=== PATIENT | female | born 1940 | race Caucasian/White ===

== ENCOUNTER → 2018-12-15 | Outpatient (CLI) | payer MEDICARE ==
[~2018-12-15] MED LIST: CIPR500 PO; DICL75ER PO; DIPATR PO; LOPE2C PO; OXYACE5T PO; PROM25 PO; TRAM50 PO; TRAZ100 PO; VENL150ER PO
== END | disposition home or self-care (01) ==
LOC: PLD 08:02 → LAB SHORT 08:02
DX: D48.5 Neoplasm of uncertain behavior of skin (principal)
CPT/HCPCS: 88304

== ENCOUNTER → 2020-04-30 | Outpatient (CLI) | payer MEDICARE | END | disposition home or self-care (01) | LOC: PLD 11:24 → LAB SHORT 11:24 | DX: C44.41 Basal cell carcinoma of skin of scalp and neck (principal) | CPT/HCPCS: 88305 ==

== ENCOUNTER 2020-09-06 15:59 | Emergency (ER) | payer MEDICARE ==
[~2020-09-06] VITALS: Ht 165.1 cm; Wt 85.3 kg
[2020-09-06 16:38] LABS: BASOPHILS ABSOLUTE AUTO 0.02 K/mm3 (0.00-0.23); BASOPHILS PERCENT AUTO 0 % (0-2); EOSINOPHILS ABSOLUTE AUTO 0.07 K/mm3 (0.00-0.68); EOSINOPHILS PERCENT AUTO 1 % (0-6); Hematocrit 29.6 % (33.0-51.0); IMMATURE GRAN ABSOLUTE AUTO 0.04 K/mm3 (0.00-0.10); IMMATURE GRAN PERCENT AUTO 1 % (0-1); LYMPHOCYTES ABSOLUTE AUTO 1.53 K/mm3 (0.84-5.20); LYMPHOCYTES PERCENT AUTO 21 % (21-46); MONOCYTES ABSOLUTE AUTO 0.52 K/mm3 (0.16-1.47); MONOCYTES PERCENT AUTO 7 % (4-13); Mean Corpuscular HGB 27.4 pg (26.0-34.0); Mean Corpuscular HGB Conc 30.4 g/dL (31.5-36.5); Mean Corpuscular Volume 90 fL (80-100); Mean Platelet Volume 8.7 fL (9.1-12.4); NEUTROPHILS ABSOLUTE AUTO 5.28 K/mm3 (1.96-9.15); NEUTROPHILS PERCENT AUTO 71 % (41-73); Platelet Count 357 K/mm3 (150-400); RDW Coefficient Variation 19.8 % (11.7-14.2); RDW Standard Deviation 62.6 fL (35.1-46.3); Red Blood Cell Count 3.28 M/mm3 (3.80-5.20); White Blood Cell Count 7.46 K/mm3 (4.00-11.30)
[2020-09-06 17:06] LABS: Alanine Aminotransfer (ALT/SGP 20 U/L (12-78); Albumin, Blood 3.6 g/dL (3.4-5.0); Albumin/Globulin Ratio 0.9 (0.8-1.8); Alk Phos 68 U/L (50-136); Anion Gap 6 mmol/L (6-16); Aspartate Aminotrans (AST/SGOT 12 U/L (12-37); Bilirubin, Total 0.3 mg/dL (0.1-1.0); Blood Urea Nitrogen 9 mg/dL (8-24); Bun/Creatinine Ratio 13.7 (12.0-20.0); CO2, Blood 24 mmol/L (21-32); Calcium, Blood 8.5 mg/dL (8.5-10.1); Chloride, Blood 108 mmol/L (98-108); Creatinine, Blood 0.66 mg/dL (0.40-1.00); Globulin, Blood 4.2 g/dL (2.2-4.0); Glomerular Filtration Rate >60 (60-); Glucose, Blood 112 mg/dL (70-99); Potassium, Blood 3.8 mmol/L (3.5-5.5); Sodium, Blood 138 mmol/L (136-145); Total Protein, Blood 7.8 g/dL (6.4-8.2); Troponin I <0.015 ng/mL (0.000-0.040)
[2021-01-16] MEDS ORDERED: LOSA50 PO (09:17)
== END 2020-09-06 18:40 | disposition home or self-care (01) ==
LOC: ER 15:59
PROVIDERS: Physician Assistant
DX: R07.9 Chest pain, unspecified (principal); Z88.0 Allergy status to penicillin; Z79.899 Other long term (current) drug therapy
CPT/HCPCS: 36415; 71046; 80053; 84484; 85025; 93005; 93010; 96374; 99285-25; J1885

== ENCOUNTER → 2020-11-12 | Outpatient (CLI) | payer MEDICARE ==
[~2020-11-12] MED LIST changes: +LOSA50 PO; +LOSARTAN POTAS100 M1 PO
== END | disposition home or self-care (01) ==
LOC: LAB SHORT 11:43 → LAB 11:43
DX: C44.719 Basal cell carcinoma of skin of left lower limb, including hip (principal)
CPT/HCPCS: 88305

== ENCOUNTER 2021-01-03 00:15 | Day surgery (SDC) | payer MEDICARE ==
[~2021-01-03 00:15] MED LIST changes: -LOSA50 PO; -LOSARTAN POTAS100 M1 PO
[2021-01-03] MEDS ORDERED: LOSARTAN POTAS100 M1 PO (09:23)
--- NOTE | 2021-01-03 11:24 | NUR ---
PT INITIALLY COMPLAINS OF DIZZINESS POST INFUSION WITH TRANSFER TO WHEELCHAIR. BY THE TIME PT WAS WHEELED TO PRIVATE CAR PT STATED DIZZINESS WAS GETTING BETTER. DISCUSSED SIGNS AND SYMPTOMS OF TRANSFUSION REACTIONS AND WHEN TO CALL 911 OR GO TO THE ER. PT VERBALIZED UNDERSTANDING.
[2021-01-16] MEDS ORDERED: LOSA50 PO (09:17)
== END 2021-01-03 11:24 | disposition home or self-care (01) ==
LOC: ATC 00:15 → EDSTATUS 09:00 → ATC 11:24
DX: D50.9 Iron deficiency anemia, unspecified (principal); I10 Essential (primary) hypertension; Z88.0 Allergy status to penicillin
CPT/HCPCS: 36430; 86850; 86900; 86901; 86920; J7050; P9016

== ENCOUNTER → 2021-01-16 | Outpatient (CLI) | payer MEDICARE ==
[~2021-01-16] MED LIST changes: +LOSA50 PO; +LOSARTAN POTAS100 M1 PO
[2021-01-17 10:58] LABS: Adenovirus F 40/41 Not Detected (NOT DETECT); Astrovirus Not Detected (NOT DETECT); Campylobacter Sp Not Detected (NOT DETECT); Cryptosporidium Not Detected (NOT DETECT); Cyclospora Cayetanensis Not Detected (NOT DETECT); E. Coli O157 Not Detected (NOT DETECT); Entamoeba Histolytica Not Detected (NOT DETECT); Enteroaggregative E. coli-EAEC Not Detected (NOT DETECT); Enteropathogenic E. coli-EPEC Not Detected (NOT DETECT); Enterotoxigenic E. coli-ETEC Not Detected (NOT DETECT); Giardia Lamblia Not Detected (NOT DETECT); Norovirus GI/GII Not Detected (NOT DETECT); Plesiomonas Shigelloides Not Detected (NOT DETECT); Rotavirus A Not Detected (NOT DETECT); Salmonella Sp Not Detected (NOT DETECT); Sapovirus Not Detected (NOT DETECT); Shiga Toxin-prod E. coli-STEC Not Detected (NOT DETECT); Shigella/Enteroin E. coli-EIEC Not Detected (NOT DETECT); Vibrio Cholerae Not Detected (NOT DETECT); Vibrio Sp Not Detected (NOT DETECT); Yersinia Enterocolitica Not Detected (NOT DETECT)
== END | disposition home or self-care (01) ==
LOC: LAB SHORT 14:38 → LAB 14:38
PROVIDERS: Student in an Organized Health Care Education/Training Program
DX: R19.7 Diarrhea, unspecified (principal)
CPT/HCPCS: 0097U

== ENCOUNTER → 2022-08-02 | Outpatient (CLI) | payer MEDICARE ==
[2022-08-02 10:46] LABS: BASOPHILS ABSOLUTE AUTO 0.05 K/mm3 (0.00-0.23); BASOPHILS PERCENT AUTO 1 % (0-2); EOSINOPHILS ABSOLUTE AUTO 0.03 K/mm3 (0.00-0.68); EOSINOPHILS PERCENT AUTO 1 % (0-6); Hematocrit 26.3 % (33.0-51.0); Hemoglobin 7.9 g/dL (11.5-16.0); IMMATURE GRAN ABSOLUTE AUTO 0.08 K/mm3 (0.00-0.10); IMMATURE GRAN PERCENT AUTO 1 % (0-1); LYMPHOCYTES ABSOLUTE AUTO 1.38 K/mm3 (0.84-5.20); LYMPHOCYTES PERCENT AUTO 23 % (21-46); MONOCYTES ABSOLUTE AUTO 0.39 K/mm3 (0.16-1.47); MONOCYTES PERCENT AUTO 7 % (4-13); Mean Corpuscular Volume 77 fL (80-100); Mean Platelet Volume 8.6 fL (9.1-12.4); NEUTROPHILS ABSOLUTE AUTO 4.03 K/mm3 (1.96-9.15); NEUTROPHILS PERCENT AUTO 68 % (41-73); NRBC ABSOLUTE 0.02 K/mm3 (0.00-0.02); NRBC Auto 0.3 /100 WBC (0.0-0.2); Platelet Count 400 K/mm3 (150-400); RDW Coefficient Variation 16.1 % (11.7-14.2); RDW Standard Deviation 43.8 fL (35.1-46.3); Red Blood Cell Count 3.44 M/mm3 (3.80-5.20); White Blood Cell Count 5.96 K/mm3 (4.00-11.30)
[2022-08-02 11:03] LABS: Albumin, Blood 3.7 g/dL (3.4-5.0); Albumin/Globulin Ratio 0.9 (0.8-1.8); Bilirubin, Total 0.2 mg/dL (0.1-1.0); Bun/Creatinine Ratio 12.5 (12.0-20.0); Calcium, Blood 8.8 mg/dL (8.5-10.1); Creatinine, Blood 0.8 mg/dL (0.40-1.00); Globulin, Blood 4.3 g/dL (2.2-4.0); Potassium, Blood 3.6 mmol/L (3.5-5.5)
== END | disposition home or self-care (01) ==
LOC: LAB 10:41 → LAB SHORT 10:41
PROVIDERS: Physician Assistant
DX: T80.92XA Unspecified transfusion reaction, initial encounter (principal)
CPT/HCPCS: 80053; 83605; 85025

== ENCOUNTER → 2022-08-03 | Outpatient (CLI) | payer MEDICARE ==
[2022-08-03 09:51] LABS: BASOPHILS ABSOLUTE AUTO 0.05 K/mm3 (0.00-0.23); BASOPHILS PERCENT AUTO 1 % (0-2); EOSINOPHILS ABSOLUTE AUTO 0.07 K/mm3 (0.00-0.68); EOSINOPHILS PERCENT AUTO 1 % (0-6); Hematocrit 27.2 % (33.0-51.0); Hemoglobin 7.9 g/dL (11.5-16.0); IMMATURE GRAN ABSOLUTE AUTO 0.09 K/mm3 (0.00-0.10); IMMATURE GRAN PERCENT AUTO 2 % (0-1); LYMPHOCYTES ABSOLUTE AUTO 1.03 K/mm3 (0.84-5.20); LYMPHOCYTES PERCENT AUTO 17 % (21-46); MONOCYTES ABSOLUTE AUTO 0.46 K/mm3 (0.16-1.47); MONOCYTES PERCENT AUTO 8 % (4-13); Mean Corpuscular HGB 23.1 pg (26.0-34.0); Mean Corpuscular Volume 80 fL (80-100); Mean Platelet Volume 8.6 fL (9.1-12.4); NEUTROPHILS ABSOLUTE AUTO 4.43 K/mm3 (1.96-9.15); NEUTROPHILS PERCENT AUTO 72 % (41-73); NRBC ABSOLUTE 0.03 K/mm3 (0.00-0.02); NRBC Auto 0.5 /100 WBC (0.0-0.2); Platelet Count 375 K/mm3 (150-400); RDW Coefficient Variation 16.5 % (11.7-14.2); RDW Standard Deviation 45.5 fL (35.1-46.3); Red Blood Cell Count 3.42 M/mm3 (3.80-5.20); White Blood Cell Count 6.13 K/mm3 (4.00-11.30)
== END | disposition home or self-care (01) ==
LOC: LAB SHORT 09:48 → LAB 09:48
PROVIDERS: Physician Assistant
DX: D64.9 Anemia, unspecified (principal)
CPT/HCPCS: 85025

== ENCOUNTER 2022-09-11 12:44 | Emergency (ER) | payer MEDICARE ==
[~2022-09-11] VITALS: Ht 167.6 cm; Wt 81.7 kg
[2022-09-11 13:46] LABS: BASOPHILS ABSOLUTE AUTO 0.04 K/mm3 (0.00-0.23); BASOPHILS PERCENT AUTO 1 % (0-2); EOSINOPHILS ABSOLUTE AUTO 0.01 K/mm3 (0.00-0.68); EOSINOPHILS PERCENT AUTO 0 % (0-6); Hematocrit 21.2 % (33.0-51.0); Hemoglobin 6.3 g/dL (11.5-16.0); IMMATURE GRAN ABSOLUTE AUTO 0.04 K/mm3 (0.00-0.10); IMMATURE GRAN PERCENT AUTO 1 % (0-1); LYMPHOCYTES ABSOLUTE AUTO 1.37 K/mm3 (0.84-5.20); LYMPHOCYTES PERCENT AUTO 20 % (21-46); MONOCYTES ABSOLUTE AUTO 0.41 K/mm3 (0.16-1.47); MONOCYTES PERCENT AUTO 6 % (4-13); Mean Corpuscular HGB 23.3 pg (26.0-34.0); Mean Corpuscular HGB Conc 29.7 g/dL (31.5-36.5); Mean Corpuscular Volume 79 fL (80-100); Mean Platelet Volume 9.4 fL (9.1-12.4); NEUTROPHILS ABSOLUTE AUTO 4.98 K/mm3 (1.96-9.15); NEUTROPHILS PERCENT AUTO 73 % (41-73); Platelet Count 448 K/mm3 (150-400); RDW Coefficient Variation 19.7 % (11.7-14.2); RDW Standard Deviation 55.9 fL (35.1-46.3); White Blood Cell Count 6.85 K/mm3 (4.00-11.30)
[2022-09-11 13:58] LABS: Albumin, Blood 3.7 g/dL (3.4-5.0); Albumin/Globulin Ratio 0.9 (0.8-1.8); Bilirubin, Total 0.3 mg/dL (0.1-1.0); Calcium, Blood 9.1 mg/dL (8.5-10.1); Creatinine, Blood 0.63 mg/dL (0.40-1.00); Potassium, Blood 3.9 mmol/L (3.5-5.5); Total Protein, Blood 7.7 g/dL (6.4-8.2)
[2022-09-11] MEDS ORDERED: PEPCID40 MG PO (15:54)
== END 2022-09-11 17:17 | disposition home or self-care (01) ==
LOC: ER 12:44
PROVIDERS: Physician Assistant
DX: D62 Acute posthemorrhagic anemia (principal); Z88.0 Allergy status to penicillin; Z88.8 Allergy status to other drugs, medicaments and biological substances; Z79.899 Other long term (current) drug therapy
CPT/HCPCS: 36415; 36430; 80053; 85025; 86850; 86900; 86901; 86923; 93005; 93010; 96374; 99284-25; C9113; J7030; P9016

== ENCOUNTER 2022-10-12 07:02 | Emergency (ER) | payer MEDICARE ==
[~2022-10-12] VITALS: Ht 167.6 cm; Wt 81.7 kg
[~2022-10-12 07:02] MED LIST changes: +PEPCID40 MG PO
[2022-10-12] MEDS ORDERED: FERROUS SULFAT325 M3 PO (07:36)
[2022-10-12] MEDS ORDERED: Flector1 EACH (07:36)
[2022-10-12] MEDS ORDERED: BRIMONIDINE 0.110 ML (07:37)
[2022-10-12] MEDS ORDERED: TRAZ100 PO (07:38)
[2022-10-12] MEDS ORDERED: OYSTER SHELL 51 EACH PO (07:38)
[2022-10-12] MEDS ORDERED: THERA-D2000 UNIT PO (07:38)
[2022-10-12] MEDS ORDERED: HYDR1TAB94 PO (08:25)
[2022-10-12] MEDS ORDERED: PRED20 PO (08:25)
== END 2022-10-12 09:39 | disposition home or self-care (01) ==
LOC: ER 07:02
DX: M25.551 Pain in right hip (principal); M35.3 Polymyalgia rheumatica; Z88.0 Allergy status to penicillin; Z88.1 Allergy status to other antibiotic agents; Z88.8 Allergy status to other drugs, medicaments and biological substances; Z79.899 Other long term (current) drug therapy; Z79.52 Long term (current) use of systemic steroids
CPT/HCPCS: 96372; 99283-25; A9270; J3301

== ENCOUNTER 2023-05-11 18:45 | Emergency (ER) | payer MEDICARE ==
[~2023-05-11] VITALS: Ht 167.6 cm; Wt 81.7 kg
[~2023-05-11 18:45] MED LIST changes: +BRIMONIDINE 0.110 ML; +FERROUS SULFAT325 M3 PO; +Flector1 EACH; +HYDR1TAB94 PO; +OYSTER SHELL 51 EACH PO; +PRED20 PO; +THERA-D2000 UNIT PO
[2023-05-11 19:38] LABS: BASOPHILS ABSOLUTE AUTO 0.05 K/mm3 (0.00-0.23); BASOPHILS PERCENT AUTO 1 % (0-2); EOSINOPHILS ABSOLUTE AUTO 0.07 K/mm3 (0.00-0.68); EOSINOPHILS PERCENT AUTO 1 % (0-6); Hematocrit 38.5 % (33.0-51.0); Hemoglobin 13.1 g/dL (11.5-16.0); IMMATURE GRAN PERCENT AUTO 1 % (0-1); LYMPHOCYTES ABSOLUTE AUTO 1.08 K/mm3 (0.84-5.20); LYMPHOCYTES PERCENT AUTO 13 % (21-46); MONOCYTES ABSOLUTE AUTO 0.36 K/mm3 (0.16-1.47); MONOCYTES PERCENT AUTO 4 % (4-13); Mean Corpuscular HGB 31.2 pg (26.0-34.0); Mean Corpuscular Volume 92 fL (80-100); Mean Platelet Volume 9.2 fL (9.1-12.4); NEUTROPHILS ABSOLUTE AUTO 6.51 K/mm3 (1.96-9.15); NEUTROPHILS PERCENT AUTO 80 % (41-73); Platelet Count 251 K/mm3 (150-400); RDW Coefficient Variation 12.8 % (11.7-14.2); White Blood Cell Count 8.17 K/mm3 (4.00-11.30)
[2023-05-11 19:50] LABS: Albumin, Blood 3.4 g/dL (3.4-5.0); Albumin/Globulin Ratio 0.8 (0.8-1.8); Bilirubin, Total 0.3 mg/dL (0.1-1.0); Bun/Creatinine Ratio 19.8 (12.0-20.0); Calcium, Blood 8.2 mg/dL (8.5-10.1); Creatinine, Blood 0.61 mg/dL (0.40-1.00); Globulin, Blood 4.1 g/dL (2.2-4.0); Potassium, Blood 4.2 mmol/L (3.5-5.5); Total Protein, Blood 7.5 g/dL (6.4-8.2)
[2023-05-11 21:31] LABS: Source, Urine Clean Catch
[2023-05-11 21:34] LABS: Appearance, Urine Clear (Clear); Bilirubin, Urine Neg (Neg); Blood, Urine 2+ (Neg); Color, Urine Yellow (P-Yellow); Glucose Qualitative, Urine Neg (Neg); Ketones, Urine Neg (Neg); Leukocyte Esterase, Urine Neg (Neg); Nitrite, Urine Neg (Neg); Protein, Urine Neg (Neg); Urobilinogen, Urine NORM (Normal)
[2023-05-11 21:56] LABS: Bacteria Few /hpf; Red Blood Cells, Urine 0-2 /hpf (0-2); Squamous Epithelial Cells Few /hpf (Few); White Blood Cells, Urine 0-2 /hpf (0-5)
[2023-05-11 23:33] LABS: Magnesium, Blood 2.2 mg/dL (1.6-2.4)
[2023-05-11 23:35] LABS: Thyroid Stimulating Hormone 6.98 uIU/mL (0.360-4.800)
[2023-05-12] MEDS ORDERED: LIDO700A20 TOP (04:58)
[2023-05-12 05:00] VITALS: BP 131/114
== END 2023-05-12 07:20 | disposition home or self-care (01) ==
LOC: ER 18:45
PROVIDERS: Emergency Medicine
DX: S22.41XA Multiple fractures of ribs, right side, initial encounter for closed fracture (principal); F10.129 Alcohol abuse with intoxication, unspecified; Y90.6 Blood alcohol level of 120-199 mg/100 ml; Z79.899 Other long term (current) drug therapy; W18.39XA Other fall on same level, initial encounter
CPT/HCPCS: 70450; 71046; 71275; 72125; 80053; 81001; 83605; 83690; 83735; 84100; 84443; 84484; 85025; 85379; 93005; 93010; J3010; Q9967

== ENCOUNTER 2023-05-21 17:40 | Inpatient (IN) | payer MEDICARE ==
[~2023-05-21] VITALS: Ht 167.6 cm; Wt 85.3 kg
[~2023-05-21 17:40] MED LIST changes: +LIDO700A20 TOP
[2023-05-21 18:11] LABS: BASOPHILS ABSOLUTE AUTO 0.04 K/mm3 (0.00-0.23); BASOPHILS PERCENT AUTO 0 % (0-2); EOSINOPHILS ABSOLUTE AUTO 0.09 K/mm3 (0.00-0.68); EOSINOPHILS PERCENT AUTO 1 % (0-6); Hematocrit 31.1 % (33.0-51.0); Hemoglobin 10.1 g/dL (11.5-16.0); IMMATURE GRAN ABSOLUTE AUTO 0.11 K/mm3 (0.00-0.10); IMMATURE GRAN PERCENT AUTO 1 % (0-1); LYMPHOCYTES ABSOLUTE AUTO 1.25 K/mm3 (0.84-5.20); LYMPHOCYTES PERCENT AUTO 11 % (21-46); MONOCYTES ABSOLUTE AUTO 0.93 K/mm3 (0.16-1.47); MONOCYTES PERCENT AUTO 8 % (4-13); Mean Corpuscular HGB 31.2 pg (26.0-34.0); Mean Corpuscular HGB Conc 32.5 g/dL (31.5-36.5); Mean Corpuscular Volume 96 fL (80-100); Mean Platelet Volume 8.9 fL (9.1-12.4); NEUTROPHILS ABSOLUTE AUTO 9.23 K/mm3 (1.96-9.15); NEUTROPHILS PERCENT AUTO 79 % (41-73); NRBC ABSOLUTE 0.03 K/mm3 (0.00-0.02); NRBC Auto 0.3 /100 WBC (0.0-0.2); Platelet Count 550 K/mm3 (150-400); RDW Coefficient Variation 14.2 % (11.7-14.2); RDW Standard Deviation 49.1 fL (35.1-46.3); Red Blood Cell Count 3.24 M/mm3 (3.80-5.20); White Blood Cell Count 11.65 K/mm3 (4.00-11.30)
[2023-05-21 18:38] LABS: Albumin, Blood 3.2 g/dL (3.4-5.0); Albumin/Globulin Ratio 0.7 (0.8-1.8); Bilirubin, Total 0.6 mg/dL (0.1-1.0); Bun/Creatinine Ratio 31.7 (12.0-20.0); Calcium, Blood 8.8 mg/dL (8.5-10.1); Creatinine, Blood 0.66 mg/dL (0.40-1.00); Globulin, Blood 4.5 g/dL (2.2-4.0); Potassium, Blood 4.1 mmol/L (3.5-5.5); Total Protein, Blood 7.7 g/dL (6.4-8.2)
[2023-05-21 21:51] VITALS: BP 130/99
--- NOTE | 2023-05-21 22:45 | NUR ---
ARRIVAL TO UNIT PT ARRIVED VIA GURNEY AND TRANSFERED OVER TO BED WITH SLDING SHEET. PT WAS PUT ON 02 AFTER ARRIVAL DUE TO C/O SOB. PT SATTING ABOVE 95% ON 2L NC. PT LUNGS SOUND ARE DIMINISHED ON THE R SIDE. PT RR LABORED, BUT EVEN. PT DENIES ANY PAIN AT THIS TIME. STATES IT HURTS MORE WHEN SHE IS MOVED. DR NOLEN IN TO TALK TO PT ABOUT CODE STATUS. PT WISHES ARE DNR/DNI. SAYS TO CALL SURGEON IF PT O2 REQUIRMENTS, WOB, SOB AND DYSPNEA INCREASE. PT DENIES ANY OTHER NEEDS AT THIS TIME. CALL LIGHT WITHIN REACH.
[2023-05-22] VITALS (31 sets, daily range): BP systolic 95–152; BP diastolic 57–100
[2023-05-22 04:22] LABS: BASOPHILS ABSOLUTE AUTO 0.04 K/mm3 (0.00-0.23); BASOPHILS PERCENT AUTO 0 % (0-2); EOSINOPHILS ABSOLUTE AUTO 0.04 K/mm3 (0.00-0.68); EOSINOPHILS PERCENT AUTO 0 % (0-6); Hematocrit 28.1 % (33.0-51.0); Hemoglobin 9.3 g/dL (11.5-16.0); IMMATURE GRAN PERCENT AUTO 1 % (0-1); LYMPHOCYTES ABSOLUTE AUTO 0.89 K/mm3 (0.84-5.20); LYMPHOCYTES PERCENT AUTO 9 % (21-46); MONOCYTES ABSOLUTE AUTO 0.98 K/mm3 (0.16-1.47); MONOCYTES PERCENT AUTO 10 % (4-13); Mean Corpuscular HGB 31.5 pg (26.0-34.0); Mean Corpuscular HGB Conc 33.1 g/dL (31.5-36.5); Mean Corpuscular Volume 95 fL (80-100); Mean Platelet Volume 8.9 fL (9.1-12.4); NEUTROPHILS ABSOLUTE AUTO 7.83 K/mm3 (1.96-9.15); NEUTROPHILS PERCENT AUTO 79 % (41-73); Platelet Count 454 K/mm3 (150-400); RDW Coefficient Variation 14.4 % (11.7-14.2); Red Blood Cell Count 2.95 M/mm3 (3.80-5.20); White Blood Cell Count 9.88 K/mm3 (4.00-11.30)
--- NOTE | 2023-05-22 04:40 | NUR ---
UPDATE PT C/O SOB. ONLY ABLE TO GET A WORD OR TWOUT WITH EVERY BREATH. PT SATTING AT 94% ON 2L NC. HOSPITALIST NOTIFIED, CHEST X-RAY WAS ORDERED. X-RAY WAS WAS OBTAINED. HOSPITALIST RECOMENDED TO PUT C-PAP OR BI-PAP ON. RT WAS NOTIFIED. RT SUGGESTED AGAINST THAT BECAUSE OF PT DX. HOSPITALIST CALLED BACK WITH RESULTS, NO NEW ORDERS. DR. FOSTER WAS NOTIFIED OF CHANGE IN PT CONDITION. SAID HE WILL BE IN IN THE MORNING. CONT BIOX ON FOR SAFETY. CALL LIGHT WITHIN REACH.
[2023-05-22 04:41] LABS: Albumin, Blood 2.8 g/dL (3.4-5.0); Albumin/Globulin Ratio 0.6 (0.8-1.8); Bilirubin, Total 0.7 mg/dL (0.1-1.0); Bun/Creatinine Ratio 28.7 (12.0-20.0); Calcium, Blood 8.5 mg/dL (8.5-10.1); Creatinine, Blood 0.63 mg/dL (0.40-1.00); Globulin, Blood 4.4 g/dL (2.2-4.0); Magnesium, Blood 2.3 mg/dL (1.6-2.4); Potassium, Blood 3.9 mmol/L (3.5-5.5); Total Protein, Blood 7.2 g/dL (6.4-8.2)
--- NOTE | 2023-05-22 07:30 | NUR ---
THIS NURSE NOTIFIED DR. FOSTER THAT PATIENTS HR, RR, AND NC OXYGEN HAVE BEEN STEADILY INCLINING AND ASKED IF DR. FOSTER WAS GOING TO COME AND SEE HER. DR. FOSTER RESPONDED "SHE IS SCHEDULED FOR THE OR AT 11 THIS MORNING". PATIENT AT THIS TIME WAS REQUIRING 4L NC WITH OXYGEN SATS AT 92%. PATIENT'S RR 26 AND HR AT 113. PATIENT IS LAYING IN BED WITH CALL LIGHT IN REACH AND AT BEDSIDE.
--- NOTE | 2023-05-22 10:41 | NUR ---
PATIENT IS LEAVING FOR THE OR.
--- NOTE | 2023-05-22 11:11 | NUR ---
PT HERE FROM SURGICAL FLOOR FOR MINI THOROCOTOMY AND CHEST TUBE PLACEMENT IN THE RIGHT LUNG. History, Chart, Medications and Allergies reviewed before start of procedure.Pre-Op teaching done. Pt verbalizes understanding. Patient confirms NPO status and agrees with scheduled surgery. PT IS DYSPENIC. NO AUDIBLE LUNG SOUNDS ON RIGHT SIDE. LEFT SIDE CLEAR. PT IN AFIB W/RVR PER EKG. PT HAS H/O OF INCONINTENCE AND PUREWIC WAS JUST REMOVED PRIOR TO TRANSPORT. PT IS WARM CENTRALLY BUT HAS AND FEET VERY COLD. LOWER LEGS MOTTELED PT STATES SHE'S BEEN FEELING HOT FOR DAYS.
--- NOTE | 2023-05-22 11:40 | NUR ---
REPORT FROM KRISTEN SILVA RN. PT SITTING UP IN BED, CURRENTLY IN AFIB PER EKG. PT VISABLY SHORT OF BREATH AND ON O2 VIA NASAL CANNULA 4LPM. PT USING ACCESSORY MUSCLES TO BREATH. 02 SATURATION STAYING AT 100%. PT GIVEN MOUTH LOSENGE AND ENCOURAGED TO BREATH THROUGH NOSE, DISTRACTION BY VISITATION AT BEDSIDE TO REDUCE PT STRESS.
--- NOTE | 2023-05-22 13:52 | NUR ---
THIS NURSE GAVE REPORT TO VIRGEN ARAGON IN ICU WITH ALL OF HER PERSONAL BELONGINGS BROUGHT OVER. WAS NOTIFIED OF NEW PATIENT STATUS.
--- NOTE | 2023-05-22 13:57 | NUR ---
1330-CALLED DR FOSTER TO BEDSIDE IN PACU TO EVALUATE PATIENT. POST-OP CXR AVAILABLE FOR DR FOSTER TO REVIEW. PATIENT EXERTING HERSELF TO BREATH. C/O SOB. ORTHOPNEIC AND TACHYPNIC. NO CREPITUS NOTED. CHEST TUBE TO 20CM. 300 SANGUNIOUS DRAINAGE NOTED TO DRRAINAGE CHAMBER. LUNGS DIMINISHED TO LOWER LOBES BILAT ANT/POST, MORE SO ON RIGHT. UNABLE TO OBTAIN O2 SATURATION WITH PULSE-OX WITH CONFIDENCE. HR 110-150s AFIB, MAINTAINES MAP GREATER THAN 60-65. C/O 7/10 PAIN TO CHEST, BUT NO ORDERS FOR ANALGESIC AT THIS TIME. THIS ALL REPORTED TO DR FOSTER. PLAN FOR TRANSFER TO ICU. 1339-LEFT PACU VIA BED TRANSFER WITH MONITOR INTACT AND 10L O2/NRB. TRANSFER TO ICU 11. REPORT GIVEN TO MARGO MAYFIELD.
--- NOTE | 2023-05-22 14:33 | NUR ---
Assumed care of pt at 1345 on patient arrival from OR. Bedside report received from surgical floor nurse Henrietta and OR staff who delivered patient. Patient has right anterior chest tube with 210 mL sanguinous drainage on arrival. Connected to dry suction -20 cm H20, set up verified with charger Roby. Site is free of crepitus. Patient's chief complaint is pain to surgical site. She states its 10/10, burning. Tachypnic. Wearing 10 LPM NRB. Unreliable pleth on SpO2. Tachycardic, irregular HR. Reports "I feel like I'm going to throw up". Medicated for pain and nausea per PACU orders. After 4 mg zofran and 2 mg morphine, pt reports pain has improved to 1/10. Denies shortness of breath and states she feels she can breathe better with her pain managed. Titrated down to 6 LPM NC. Currently SPO2 is 93%. Tachycardia persists, notified Dr Luque of ICU transfer and vital signs trends. Discussed EBL per verbal report and documentation in chart. Provider orders stat labs. BP stable. Per Henrietta ARAGON, she notified pt's spouse of ICU transfer.
[2023-05-22 14:52] LABS: BASOPHILS ABSOLUTE AUTO 0.05 K/mm3 (0.00-0.23); BASOPHILS PERCENT AUTO 0 % (0-2); EOSINOPHILS PERCENT AUTO 0 % (0-6); Hematocrit 33.3 % (33.0-51.0); Hemoglobin 10.6 g/dL (11.5-16.0); IMMATURE GRAN ABSOLUTE AUTO 0.15 K/mm3 (0.00-0.10); IMMATURE GRAN PERCENT AUTO 1 % (0-1); LYMPHOCYTES ABSOLUTE AUTO 0.52 K/mm3 (0.84-5.20); LYMPHOCYTES PERCENT AUTO 4 % (21-46); MONOCYTES ABSOLUTE AUTO 0.93 K/mm3 (0.16-1.47); MONOCYTES PERCENT AUTO 7 % (4-13); Mean Corpuscular HGB 31.4 pg (26.0-34.0); Mean Corpuscular HGB Conc 31.8 g/dL (31.5-36.5); Mean Corpuscular Volume 99 fL (80-100); Mean Platelet Volume 8.7 fL (9.1-12.4); NEUTROPHILS ABSOLUTE AUTO 12.04 K/mm3 (1.96-9.15); NEUTROPHILS PERCENT AUTO 88 % (41-73); NRBC ABSOLUTE 0.02 K/mm3 (0.00-0.02); NRBC Auto 0.1 /100 WBC (0.0-0.2); Platelet Count 487 K/mm3 (150-400); RDW Coefficient Variation 14.4 % (11.7-14.2); Red Blood Cell Count 3.38 M/mm3 (3.80-5.20); White Blood Cell Count 13.69 K/mm3 (4.00-11.30)
[2023-05-22 15:11] LABS: Albumin, Blood 2.8 g/dL (3.4-5.0); Albumin/Globulin Ratio 0.6 (0.8-1.8); Bilirubin, Total 0.6 mg/dL (0.1-1.0); Bun/Creatinine Ratio 27.6 (12.0-20.0); Calcium, Blood 8.3 mg/dL (8.5-10.1); Creatinine, Blood 0.62 mg/dL (0.40-1.00); Globulin, Blood 4.4 g/dL (2.2-4.0); Magnesium, Blood 2.3 mg/dL (1.6-2.4); Potassium, Blood 3.7 mmol/L (3.5-5.5); Total Protein, Blood 7.2 g/dL (6.4-8.2)
--- NOTE | 2023-05-22 15:15 | NUR ---
Call placed to Dr Luque to discuss that pt's HR has touched into the 160s. Patient denies hx of atrial fibrillation. Provider states that patient has a hx of atrial fibrillation per Natalia notes. Also states that pt typically has controlled rate without medications. Discussed that pt's mucous membranes are very dry. Provider orders IV fluids with plan that hydration will help pt's HR stabilize. Discussed that pt has mottling to bilateral knees and cyanotic fingers/toes with delayed capillary refill. Expressed concern for potential infection considering HR and poor distal extremity circulation. Inquired if lactic acid should be drawn. Provider states that pt's presentation does not appear as sepsis and no changes to plan of care are necessary at this time.
--- NOTE | 2023-05-22 18:26 | NUR ---
SUMMARY Neuro: Pt is A&O x 4. Answers questions, follows commands, verbalizes needs. Pleasant and cooperative with care. Pupils 4 mm, PERRL. Pain: Burning pain to right lateral chest, site of rib fx and chest tube. Effectively treated with IV morphine and PO pain meds. Currently reports pain 3/10 (after repositioning and coughing) and states this is a tolerable level for her. Musc: Moves all extremities with equal strength and range of motion. Able to help with repositioning. ADLs: Repositioned Q2H. Oral care performed with suction swab. Pt educated on importance of oral care for pneumonia prevention; pt verbalizes understanding. Resp: Coarse on DANIELLE and clear/dim in other lobes. Has been titrated down to 3 LPM NC. SpO2 currently 99%. R lateral chest tube has had 260 mL of sanguinous drainage. No leak. Fluctuating with respirations. No creiptus. On awakening this evening, pt has had upper respiratory repiratory secretions, audible when pt is breathing. Coached pt to cough and deep breathe. Additionally coached patient on usage of incentive spirometer and flutter valve. Pt has been using these devices correctly and independently after education provided. Cardiac: Afib per monitor with rate in low 100s. BP stable. Cyanotic fingers and toes unchanged. No edema. GI: Tolerated PO water and pills without difficulty. No BM this shift. : Purewick in place. No new urine output this afternoon. Skin: No skin breakdown. Posterior surface free of pressure injury. Ecchymosis to right lateral chest/flank, appears as old/fading bruising. Very dry mucous membranes. Psychosocial: Family updated by previous RN caring for patient. Pt anxious on arrival but has calmed since pain has been controlled. Receptive to education provided and appreciative of care. Often talks to self in room.
[2023-05-23] VITALS (18 sets, daily range): BP systolic 86–112; BP diastolic 50–74
[2023-05-23 03:39] LABS: BASOPHILS ABSOLUTE AUTO 0.03 K/mm3 (0.00-0.23); BASOPHILS PERCENT AUTO 0 % (0-2); EOSINOPHILS ABSOLUTE AUTO 0.02 K/mm3 (0.00-0.68); EOSINOPHILS PERCENT AUTO 0 % (0-6); Hemoglobin 8.9 g/dL (11.5-16.0); IMMATURE GRAN ABSOLUTE AUTO 0.18 K/mm3 (0.00-0.10); IMMATURE GRAN PERCENT AUTO 2 % (0-1); LYMPHOCYTES ABSOLUTE AUTO 0.89 K/mm3 (0.84-5.20); LYMPHOCYTES PERCENT AUTO 7 % (21-46); MONOCYTES ABSOLUTE AUTO 1.28 K/mm3 (0.16-1.47); MONOCYTES PERCENT AUTO 11 % (4-13); Mean Corpuscular HGB 30.9 pg (26.0-34.0); Mean Corpuscular HGB Conc 31.8 g/dL (31.5-36.5); Mean Corpuscular Volume 97 fL (80-100); Mean Platelet Volume 8.8 fL (9.1-12.4); NEUTROPHILS ABSOLUTE AUTO 9.82 K/mm3 (1.96-9.15); NEUTROPHILS PERCENT AUTO 80 % (41-73); Platelet Count 390 K/mm3 (150-400); RDW Coefficient Variation 14.3 % (11.7-14.2); RDW Standard Deviation 50.8 fL (35.1-46.3); Red Blood Cell Count 2.88 M/mm3 (3.80-5.20); White Blood Cell Count 12.22 K/mm3 (4.00-11.30)
[2023-05-23 04:00] LABS: Calcium, Blood 7.9 mg/dL (8.5-10.1); Creatinine, Blood 0.64 mg/dL (0.40-1.00); Potassium, Blood 3.6 mmol/L (3.5-5.5)
--- NOTE | 2023-05-23 13:06 | NUR ---
REASSESSMENT PT GOT UP TO THE CHAIR THIS AM WITH THE LIFT AND HAS BEEN SITTING IN THE CHAIR SINCE. SHE IS ALERT AND ORIENTED. OXYGEN WEANED OFF THIS AM AND WHILE AWAKE SPO2 IS IN THE MID 90S. WHEN SHE TOOK A NAP HER SPO2 DROPPED TO 86% SO 2L/NC PUT BACK ON HER WHILE SHE SLEPT. RIGHT CHEST TUBE IS SECURE WITH SANGUINOUS DRAINAGE. NO CREPITUS AROUND INSERTION SITE. MEDICATED ONCE THIS AM FOR PAIN ON THE R SIDE. LUNGS ON THE R ARE COARSE, CLEAR ON THE L. CONTINUES IN AFIB, RATE IN THE LOW 100S. PUREWICK IN PLACE FOR VOIDING. PT IS DRINKING FLUIDS AND ATE BREAKFAST. PT'S CAME BY THIS AM AND WAS UPDATED BY NURSING STAFF.
--- NOTE | 2023-05-23 17:46 | NUR ---
SHIFT SUMMARY/TRANSFER PT HAS CONTINUED TO DO WELL THROUGHOUT THE DAY. SANGUINOUS DRAINAGE FROM CHEST TUBE IS TURNING MORE BROWN, CONSISTENT WITH THE APPEARANCE OF OLDER BLOOD. LUNGS ARE STILL COARSE ON THE R SIDE AND ARE STARTING TO SOUND A LITTLE COARSE ON THE L. REMAINS IN AFIB WITH RATE IN THE LOW 100S AT REST, UP TO 130S WITH ACTIVITY OR WHEN MORE PAINFUL. BP STABLE. VOIDING USING THE PUREWICK. PT TRANSFERRING TO RM 226. REPORT GIVEN TO MARGO BONILLA. PT TRANSPORTED VIA WITH LUBE MAN. PT'S , HARJEET, NOTIFIED OF ROOM CHANGE.
--- NOTE | 2023-05-23 18:17 | NUR ---
ARRIVAL TO UNIT PT ARRIVED TO UNIT WITH WATERSEAL INTACT, CONNECTED TO WALL SUCTION AT -20. PT REPORTS BREATHING FEELS MUCH BETTER BUT STILL PAINFUL WITH INSPIRATION. SANGUINOUS DRAINAGE IN CANISTER. PT [id number], SITTING UP IN BED LISTENING TO MUSIC. CALLS APPROPRIATLY. REPORTS PAIN TOLERABLE AT THIS TIME. DENIES FURTHER NEEDS AT THIS TIME.
[2023-05-24 02:02] VITALS: BP 117/59
[2023-05-24 02:03] VITALS: BP 117/59
[2023-05-24 07:20] VITALS: BP 110/62
[2023-05-24 07:21] LABS: BASOPHILS ABSOLUTE AUTO 0.03 K/mm3 (0.00-0.23); BASOPHILS PERCENT AUTO 0 % (0-2); EOSINOPHILS ABSOLUTE AUTO 0.07 K/mm3 (0.00-0.68); EOSINOPHILS PERCENT AUTO 1 % (0-6); Hematocrit 24.9 % (33.0-51.0); IMMATURE GRAN ABSOLUTE AUTO 0.15 K/mm3 (0.00-0.10); IMMATURE GRAN PERCENT AUTO 1 % (0-1); LYMPHOCYTES ABSOLUTE AUTO 0.68 K/mm3 (0.84-5.20); LYMPHOCYTES PERCENT AUTO 6 % (21-46); MONOCYTES ABSOLUTE AUTO 0.91 K/mm3 (0.16-1.47); MONOCYTES PERCENT AUTO 9 % (4-13); Mean Corpuscular HGB 30.4 pg (26.0-34.0); Mean Corpuscular HGB Conc 32.1 g/dL (31.5-36.5); Mean Corpuscular Volume 95 fL (80-100); Mean Platelet Volume 8.7 fL (9.1-12.4); NEUTROPHILS ABSOLUTE AUTO 8.86 K/mm3 (1.96-9.15); NEUTROPHILS PERCENT AUTO 83 % (41-73); Platelet Count 311 K/mm3 (150-400); RDW Coefficient Variation 13.9 % (11.7-14.2); RDW Standard Deviation 47.8 fL (35.1-46.3); Red Blood Cell Count 2.63 M/mm3 (3.80-5.20)
--- NOTE | 2023-05-24 07:29 | NUR ---
SHIFT SUMMARY PT REMAINS A&O X4,VSS, AFIB THROUGH THE NIGHT PER MANAGER COMBINATION, SPO2 >93% ON 3L VIA NC, C.TUBE DRSG C/D/I, 30 ML'S OF SANGUINOUS DRAINAGE NOTED, SWELLING/BRUISING PRESENT, PAIN WNL, RESP SHALLOW, UNLABORED, TOLERATING PO INTAKE, VOIDING WNL, PT IS AWAKE, RESTING IN BED THIS MORNING, CALL LIGHT IN REACH, REPORT GIVEN TO CHAD ARAGON
[2023-05-24 07:41] LABS: Calcium, Blood 7.7 mg/dL (8.5-10.1); Creatinine, Blood 0.63 mg/dL (0.40-1.00); Potassium, Blood 3.4 mmol/L (3.5-5.5)
--- NOTE | 2023-05-24 10:12 | NUR ---
CHEST TUBE PLACED TO WATER SEAL AT THIS TIME. PT DENIES SOB. EDUCATED PATIENT ON CALLING IF SHE HAS AN INCREASE IN PAIN OR SHORTNESS OF BREATH. SHE HAS CALL LIGHT IN REACH AND IS UNDERSTANDING OF EDUCATION.
--- NOTE | 2023-05-24 13:47 | NUR ---
pt c/o of increased confusion upon waking up, lungs sounds clear t/o but absent on right lower lobes. oxygen saturation staying above 92%. pt reports no increase in shortness of breath. md notified. will continue with water seal and repeat x-rays in the morning.
[2023-05-24 14:45] VITALS: BP 103/69
--- NOTE | 2023-05-24 17:19 | NUR ---
PT CONTINUING TO HAVE INCREASED WORK OF BREATHING. SHE REPORTS FEELING HARDER TO BREATH. CHEST TUBE CONTINUED TO TIDAL WHILE ON WATER SEAL. RECONNECTED TO SUCTION AT -[address] FOSTER. NO BUBBLES IN WATER SEAL CHAMBER. PT ABLE TO TAKE DEEP BREATHS WITH TIDLING NOTED. PT HAS BEEN UP IN CHAIR FOR MOST OF SHIFT, SHE HAS BEEN TRANSFERING WITH 1 ASSIST TO BSC. VOIDING WELL. TOLERATING DIET WELL. SLIGHT CONFUSION UPON WAKING DURING SHIFT BUT REORIENTS WELL. CHEST TUBE DRESSING REMAINS CDI. NO CREPITUS FELT ON ASSESSMENT.
--- NOTE | 2023-05-24 18:08 | NUR ---
pt reports feeling much better since being reconnected to suction. she reports no more confusion or "foggy" feeling. sats remain in the upper 90's
[2023-05-24 18:24] VITALS: BP 104/60
[2023-05-25] VITALS (16 sets, daily range): BP systolic 98–121; BP diastolic 55–87
[2023-05-25 04:57] LABS: BASOPHILS ABSOLUTE AUTO 0.03 K/mm3 (0.00-0.23); BASOPHILS PERCENT AUTO 0 % (0-2); EOSINOPHILS ABSOLUTE AUTO 0.13 K/mm3 (0.00-0.68); EOSINOPHILS PERCENT AUTO 2 % (0-6); Hemoglobin 7.4 g/dL (11.5-16.0); IMMATURE GRAN ABSOLUTE AUTO 0.12 K/mm3 (0.00-0.10); IMMATURE GRAN PERCENT AUTO 2 % (0-1); LYMPHOCYTES ABSOLUTE AUTO 0.62 K/mm3 (0.84-5.20); LYMPHOCYTES PERCENT AUTO 8 % (21-46); MONOCYTES ABSOLUTE AUTO 0.72 K/mm3 (0.16-1.47); MONOCYTES PERCENT AUTO 9 % (4-13); Mean Corpuscular HGB 30.5 pg (26.0-34.0); Mean Corpuscular HGB Conc 32.2 g/dL (31.5-36.5); Mean Corpuscular Volume 95 fL (80-100); Mean Platelet Volume 8.9 fL (9.1-12.4); NEUTROPHILS ABSOLUTE AUTO 6.47 K/mm3 (1.96-9.15); NEUTROPHILS PERCENT AUTO 80 % (41-73); Platelet Count 275 K/mm3 (150-400); RDW Coefficient Variation 14.1 % (11.7-14.2); Red Blood Cell Count 2.43 M/mm3 (3.80-5.20); White Blood Cell Count 8.09 K/mm3 (4.00-11.30)
[2023-05-25 05:25] LABS: Albumin/Globulin Ratio 0.5 (0.8-1.8); Bilirubin, Total 0.3 mg/dL (0.1-1.0); Bun/Creatinine Ratio 13.9 (12.0-20.0); Calcium, Blood 7.9 mg/dL (8.5-10.1); Creatinine, Blood 0.58 mg/dL (0.40-1.00); Globulin, Blood 4.1 g/dL (2.2-4.0); Potassium, Blood 3.3 mmol/L (3.5-5.5); Total Protein, Blood 6.1 g/dL (6.4-8.2)
--- NOTE | 2023-05-25 07:58 | NUR ---
SHIFT SUMMARY PT REMAINS A&O X4, VSS, AFIB PER HISTORICAL RECORDS ADMINISTRATOR, SPO2 >94% ON 3L NC, CHEST TUBE TO SUCTION, DRSG C/D/I, SANGUINOUS FLUID NOTED IN CANISTER, PT DENIES SOB, DEEP BREATH & COUGH ENC, PT SCHEDULED FOR 2 VIEW CHEST XRAY THIS AM, HGB 7.4, KCL 3.3, PAIN MANAGED PER EMAR, VOIDING WNL, TOLERATING PO INTAKE, REPORT GIVEN TO HELADIO ARAGON. CALL LIGHT IN REACH
--- NOTE | 2023-05-25 08:50 | NUR ---
INCREASED WOB/SOB PT CALLED TO SAY FEELING SOB. ELEVATED HOB. 02 SATS DROPPED TO HIGH 70S, PT ENCOURAGED TO TAKE DEEP INSPIRATIONS AND INCREASED 02 TO 3L NC. NOW SATS HIGH 90S. PT TACHYPNIC AT 24. NOTIFIED DR FOSTER, CXR CHANGED TO STAT PORTABLE AND DR CALZADA NOTIFIED PER DR FOSTER'S REQUEST. SPOKE TO DR CALZADA, NO NEW ORDERS AT THIS TIME, WANTS TO WAIT FOR RESULTS OF XR. PT'S CALL LIGHT IN REACH.
--- NOTE | 2023-05-25 09:03 | NUR ---
INCREASED 02 TO 4L NC SATS DROPPNG TO MID 80S ON 3L NC, INCREASED TO 4L, NOW LOW 90S.
--- NOTE | 2023-05-25 09:44 | NUR ---
PT HAS GURGLING SOUNDS ON INSPIRATION RUL/DANIELLE. 02 SATS 90S ON 4L NC. PT UPRIGHT IN BED. CALLED DR CALZADA. ORDERS OBTAINED FOR ABG. AWAITING RESULTS OF CHEST XR.
[2023-05-25 10:01] LABS: PCO2 Arterial 34.4 mmHg (35-45); PO2 Arterial 137 mmHg (80-100); pH Blood Arterial 7.48 (7.35-7.45)
[2023-05-25 10:13] LABS: Hematocrit 24.2 % (33.0-51.0); Hemoglobin 7.7 g/dL (11.5-16.0)
--- NOTE | 2023-05-25 10:45 | NUR ---
DR CALZADA IN TO SEE PT.
--- NOTE | 2023-05-25 10:51 | NUR ---
PT TO CT
--- NOTE | 2023-05-25 13:56 | NUR ---
DR FOSTER IN TO SEE PT AND DC'D CHEST TUBE. 02 SATS 99% ON 4L NC. PT RESTING UPRIGHT IN BED WITH LIGHT OFF AND CALL LIGHT IN REACH. MEDICATED PER ORDERS FOR 7/10 PAIN AFTER CHEST TUBE REMOVAL.
--- NOTE | 2023-05-25 17:32 | NUR ---
SUMMARY PT C/O OF INCREASED SOB AND HAD INCREASED WOB THIS AM. DR CALZADA ORDERED CHEST CT AND 2 UNITS OF PRBCS. 1ST UNIT INFUSING AT THIS TIME. DR FOSTER IN THIS AFTERNOON AND DC'D PT'S CHEST TUBE. PT'S 02 SATS REMAINING IN MID- HIGH- 90S ON 3L O2. VSS. CALL LIGHT IN REACH. MEDICATED PER ORDERS FOR R SIDE PAIN. PT REPORTS SLIGHT IMPROVEMENT, RATING 3/10 AT THIS TIME.
[2023-05-26 00:46] VITALS: BP 109/66
[2023-05-26 01:55] VITALS: BP 105/63
[2023-05-26 02:54] VITALS: BP 120/70
[2023-05-26 04:00] LABS: BASOPHILS ABSOLUTE AUTO 0.06 K/mm3 (0.00-0.23); BASOPHILS PERCENT AUTO 1 % (0-2); EOSINOPHILS ABSOLUTE AUTO 0.13 K/mm3 (0.00-0.68); EOSINOPHILS PERCENT AUTO 2 % (0-6); Hematocrit 32.4 % (33.0-51.0); IMMATURE GRAN ABSOLUTE AUTO 0.11 K/mm3 (0.00-0.10); IMMATURE GRAN PERCENT AUTO 1 % (0-1); LYMPHOCYTES ABSOLUTE AUTO 0.66 K/mm3 (0.84-5.20); LYMPHOCYTES PERCENT AUTO 8 % (21-46); MONOCYTES ABSOLUTE AUTO 0.67 K/mm3 (0.16-1.47); MONOCYTES PERCENT AUTO 8 % (4-13); Mean Corpuscular HGB 30.2 pg (26.0-34.0); Mean Platelet Volume 8.9 fL (9.1-12.4); NEUTROPHILS ABSOLUTE AUTO 6.88 K/mm3 (1.96-9.15); NEUTROPHILS PERCENT AUTO 81 % (41-73); Platelet Count 304 K/mm3 (150-400); RDW Coefficient Variation 15.2 % (11.7-14.2); RDW Standard Deviation 49.6 fL (35.1-46.3); Red Blood Cell Count 3.64 M/mm3 (3.80-5.20); White Blood Cell Count 8.51 K/mm3 (4.00-11.30)
[2023-05-26 04:15] LABS: Bun/Creatinine Ratio 10.4 (12.0-20.0); Calcium, Blood 8.1 mg/dL (8.5-10.1); Creatinine, Blood 0.67 mg/dL (0.40-1.00); Magnesium, Blood 2.1 mg/dL (1.6-2.4); Potassium, Blood 3.3 mmol/L (3.5-5.5)
[2023-05-26 05:14] LABS: Mean Corpuscular Volume 89 fL (80-100)
--- NOTE | 2023-05-26 07:29 | NUR ---
SHIFT SUMMARY PT REMAINS A&O X4, VSS, SPO2 >94% ON 3 L/MIN VIA NC, PT RECIEVED HER 2ND UNIT OF PRBC'S, HGB THIS AM IS 11.0, PT WAS GIVEN LASIX AFTER TRANSFUSION, SHE HAS BEEN INCONTINENT OF URINE BUT HAS BEEN VOIDING, LUNG SOUNDS REMAIN MOIST, DIMINISHED W/GURGLE SOUNDS, RT WAS CALLED TO BEDSIDE FOR VERIFICATION, HOSPITALIST NOTIFIED, FOLLOW UP CHEST XRAY WAS ORDERED FOR THIS AM, PAIN MANAGED PER EMAR, DRSG TO RIGHT RIBS C/D/I, PT IS SLEEPING AT THIS TIME, RESP UNLABORED, CALL LIGHT IN REACH, REPORT GIVEN TO JEFFERY ARAGON
[2023-05-26 07:32] VITALS: BP 123/77
--- NOTE | 2023-05-26 12:55 | NUR ---
AWAKE AND RESTING IN BED. REPORTS FEELS MORE RESTED AFTER NAP BUT STILL SOB WITH EXERTION/TALKING. SATS MID 90S ON 3L NC. PT DOES APPEAR SOB WITH EXERTION. CALL LIGHT IN REACH.
[2023-05-26 14:47] LABS: Hematocrit 32.9 % (33.0-51.0)
[2023-05-26 14:49] VITALS: BP 125/82
--- NOTE | 2023-05-26 17:15 | NUR ---
SUMMARY PT HAS BEEN FATIGUED T/O SHIFT. SLEPT OFF AND ON T/O DAY. MEDICATED THIS EVENING W/TYLENOL PER ORDERS FOR BACK PAIN. PT CONTINUES TO BE SOB W/EXERTION/TALKING. 02 SATS MID-HIGH 90S ON 3L NC. PLACED NEW CONTINUOUS PULSE OX PROBE. CALL LIGHT IN REACH.
[2023-05-26 19:22] VITALS: BP 115/76
[2023-05-27 03:09] VITALS: BP 147/75
--- NOTE | 2023-05-27 04:44 | NUR ---
SHIFT SUMMARY PT ABLE TO REST T/O NIGHT. PT DENIES PAIN. PT SBA TO BEDSIDE COMMODE. VOIDING, TOLERATING PO INTAKE. PT WOB INCREASES WITH MOVEMENT, BUT RECOVERS WHEN SITTING. O2 SATS STAYING ABOVE 95% ON 3L NC. PT USING I.S. AND FLUTTER VALVE PRN. VSS. NO OTHER CONCERNS AT THIS TIME CALL LIGHT WITHIN REACH.
[2023-05-27 05:29] LABS: BASOPHILS ABSOLUTE AUTO 0.03 K/mm3 (0.00-0.23); BASOPHILS PERCENT AUTO 0 % (0-2); EOSINOPHILS ABSOLUTE AUTO 0.11 K/mm3 (0.00-0.68); EOSINOPHILS PERCENT AUTO 2 % (0-6); Hematocrit 33.9 % (33.0-51.0); Hemoglobin 11.4 g/dL (11.5-16.0); IMMATURE GRAN ABSOLUTE AUTO 0.08 K/mm3 (0.00-0.10); IMMATURE GRAN PERCENT AUTO 1 % (0-1); LYMPHOCYTES ABSOLUTE AUTO 0.62 K/mm3 (0.84-5.20); LYMPHOCYTES PERCENT AUTO 9 % (21-46); MONOCYTES ABSOLUTE AUTO 0.64 K/mm3 (0.16-1.47); MONOCYTES PERCENT AUTO 10 % (4-13); Mean Corpuscular HGB 30.3 pg (26.0-34.0); Mean Corpuscular HGB Conc 33.6 g/dL (31.5-36.5); Mean Corpuscular Volume 90 fL (80-100); Mean Platelet Volume 8.8 fL (9.1-12.4); NEUTROPHILS ABSOLUTE AUTO 5.28 K/mm3 (1.96-9.15); NEUTROPHILS PERCENT AUTO 78 % (41-73); Platelet Count 329 K/mm3 (150-400); RDW Coefficient Variation 14.9 % (11.7-14.2); RDW Standard Deviation 49.6 fL (35.1-46.3); Red Blood Cell Count 3.76 M/mm3 (3.80-5.20); White Blood Cell Count 6.76 K/mm3 (4.00-11.30)
[2023-05-27 06:07] LABS: Bun/Creatinine Ratio 15.1 (12.0-20.0); Calcium, Blood 8.5 mg/dL (8.5-10.1); Creatinine, Blood 0.46 mg/dL (0.40-1.00); Potassium, Blood 3.6 mmol/L (3.5-5.5)
[2023-05-27 07:42] VITALS: BP 139/91
[2023-05-27 14:02] VITALS: BP 120/79
[2023-05-27 15:43] LABS: SARS-Cov-2 (COVID-19) PCR, MMC NEGATIVE (NEGATIVE)
--- NOTE | 2023-05-27 17:25 | NUR ---
DISCHARGE TO FACILITY, PATIENT LEFT VIA SUNSHINE TAXI, WHEEL CHAIR. CALLED REPORT TO NR. PATIENT IS ACCEPTING OF DISCHARGE TO FACILITY. ALL POSSESSIONS BAGGED UP AND GIVEN TO PATIENT. ARMANDO LEVINENE OUT NO COMPLICATIONS.
== END 2023-05-27 16:54 | DRG 199 ==
LOC: ER 17:40 → SURS 20:30 → ICUE 05-22 13:38 → SURS 05-23 17:37
PROVIDERS: Internal Medicine; Physician Assistant; Surgery; ADMIT Student in an Organized Health Care Education/Training Program
PROC: 4A033R1 Measurement of Arterial Saturation, Peripheral, Percutaneous Approach (ICD-10-PCS; 2023-05-21)
PROC: 0W9930Z Drainage of Right Pleural Cavity with Drainage Device, Percutaneous Approach (ICD-10-PCS; principal; 2023-05-22 11:15)
PROC: 30233N1 Transfusion of Nonautologous Red Blood Cells into Peripheral Vein, Percutaneous Approach (ICD-10-PCS; 2023-05-25)
DX: S27.1XXA Traumatic hemothorax, initial encounter (principal); J96.01 Acute respiratory failure with hypoxia; S22.41XA Multiple fractures of ribs, right side, initial encounter for closed fracture; R65.10 Systemic inflammatory response syndrome (SIRS) of non-infectious origin without acute organ dysfunction; D62 Acute posthemorrhagic anemia; J98.11 Atelectasis; Z66 Do not resuscitate; I10 Essential (primary) hypertension; F32.A Depression, unspecified; K44.9 Diaphragmatic hernia without obstruction or gangrene; W18.30XA Fall on same level, unspecified, initial encounter; M54.6 Pain in thoracic spine; M35.3 Polymyalgia rheumatica; F10.90 Alcohol use, unspecified, uncomplicated; E78.5 Hyperlipidemia, unspecified; G25.0 Essential tremor; I48.0 Paroxysmal atrial fibrillation; Z11.52 Encounter for screening for COVID-19; Z88.0 Allergy status to penicillin; Z88.8 Allergy status to other drugs, medicaments and biological substances; Z79.899 Other long term (current) drug therapy; Z87.19 Personal history of other diseases of the digestive system; Z90.710 Acquired absence of both cervix and uterus; Z98.890 Other specified postprocedural states
CPT/HCPCS: 36415; 36600; 71045; 71046; 71260; 80048; 80053; 82803; 83735; 85014; 85018; 85025; 86850; 86900; 86901; 86923; 93005; 93010; 94762; 96374-59; 97110; 97116; 97162; 99285-25; A9270; J0690; J1170; J1940; J2250; J2270; J2405; J2704; J3010; J7030; J7040; J7120; P9016; Q9967; U0002

== ENCOUNTER 2023-07-23 07:08 | Inpatient (IN) | payer MEDICARE ==
[~2023-07-23] VITALS: Ht 165.1 cm; Wt 80.4 kg
[2023-07-23 08:27] LABS: BASOPHILS ABSOLUTE AUTO 0.03 K/mm3 (0.00-0.23); BASOPHILS PERCENT AUTO 0 % (0-2); EOSINOPHILS ABSOLUTE AUTO 0.01 K/mm3 (0.00-0.68); EOSINOPHILS PERCENT AUTO 0 % (0-6); Hematocrit 38.6 % (33.0-51.0); Hemoglobin 12.7 g/dL (11.5-16.0); IMMATURE GRAN ABSOLUTE AUTO 0.05 K/mm3 (0.00-0.10); IMMATURE GRAN PERCENT AUTO 1 % (0-1); LYMPHOCYTES ABSOLUTE AUTO 0.68 K/mm3 (0.84-5.20); LYMPHOCYTES PERCENT AUTO 7 % (21-46); MONOCYTES ABSOLUTE AUTO 0.31 K/mm3 (0.16-1.47); MONOCYTES PERCENT AUTO 3 % (4-13); Mean Corpuscular HGB 28.9 pg (26.0-34.0); Mean Corpuscular HGB Conc 32.9 g/dL (31.5-36.5); Mean Corpuscular Volume 88 fL (80-100); Mean Platelet Volume 9.7 fL (9.1-12.4); NEUTROPHILS ABSOLUTE AUTO 8.25 K/mm3 (1.96-9.15); NEUTROPHILS PERCENT AUTO 89 % (41-73); Platelet Count 237 K/mm3 (150-400); RDW Coefficient Variation 13.9 % (11.7-14.2); RDW Standard Deviation 44.8 fL (35.1-46.3); Red Blood Cell Count 4.39 M/mm3 (3.80-5.20); White Blood Cell Count 9.33 K/mm3 (4.00-11.30)
[2023-07-23 08:56] LABS: Albumin, Blood 3.3 g/dL (3.4-5.0); Albumin/Globulin Ratio 0.9 (0.8-1.8); Bilirubin, Total 0.4 mg/dL (0.1-1.0); Calcium, Blood 8.6 mg/dL (8.5-10.1); Creatinine, Blood 0.65 mg/dL (0.40-1.00); Globulin, Blood 3.7 g/dL (2.2-4.0); Potassium, Blood 3.7 mmol/L (3.5-5.5)
[2023-07-23 13:31] VITALS: BP 131/97
[2023-07-23 14:46] VITALS: BP 127/90
--- NOTE | 2023-07-23 18:55 | NUR ---
SHIFT SUMMARY S/P L HIP FX AFTER GLF, A/OX4, VSS, TOLERATING PO, PAIN MANAGED PER EMAR, ORTHO MD DISCUSSED PLAN FOR OR TOMORROW WITH HER AND SHE WAS AGGREABLE, PLAN FOR NPO AT MIDNIGHT. NO ACUTE EVENTS THIS SHIFT, CALL LIGHT IN REACH.
[2023-07-23 19:13] VITALS: BP 113/73
[2023-07-23 23:36] VITALS: BP 121/80
[2023-07-24] VITALS (23 sets, daily range): BP systolic 97–134; BP diastolic 61–95
--- NOTE | 2023-07-24 06:21 | NUR ---
SHIFT SUMMARY S/P L HIP FX R/T GLF. NO ACUTE CHANGES OVERNIGHT. VSS. 2L O2 NC PLACED ON PT WHILE ASLEEP TO MAINTAIN SAT >90%. BIOX PLACED ON EAR, FINGER PROBE WAS NOT READING. NPO SINCE MIDNIGHT c ANTICIPATED SURGERY TODAY. REPLACEMENT FLUIDS INFUSING PER EMAR. PT INCONTINENT AT BASELINE, ATTENS IN PLACE, PUREWICK IN PLACE PRN. NO BM. PT MEDICATED FOR PAIN PER EMAR. CALL LIGHT WITHIN REACH, BED IN LOWEST POSITION, WILL REPORT TO DAY RN.
[2023-07-24 06:34] LABS: BASOPHILS ABSOLUTE AUTO 0.02 K/mm3 (0.00-0.23); BASOPHILS PERCENT AUTO 0 % (0-2); EOSINOPHILS ABSOLUTE AUTO 0.01 K/mm3 (0.00-0.68); EOSINOPHILS PERCENT AUTO 0 % (0-6); Hematocrit 34.8 % (33.0-51.0); Hemoglobin 11.2 g/dL (11.5-16.0); IMMATURE GRAN ABSOLUTE AUTO 0.03 K/mm3 (0.00-0.10); IMMATURE GRAN PERCENT AUTO 1 % (0-1); LYMPHOCYTES ABSOLUTE AUTO 0.88 K/mm3 (0.84-5.20); LYMPHOCYTES PERCENT AUTO 17 % (21-46); MONOCYTES ABSOLUTE AUTO 0.47 K/mm3 (0.16-1.47); MONOCYTES PERCENT AUTO 9 % (4-13); Mean Corpuscular HGB 28.9 pg (26.0-34.0); Mean Corpuscular HGB Conc 32.2 g/dL (31.5-36.5); Mean Corpuscular Volume 90 fL (80-100); Mean Platelet Volume 9.7 fL (9.1-12.4); NEUTROPHILS ABSOLUTE AUTO 3.93 K/mm3 (1.96-9.15); NEUTROPHILS PERCENT AUTO 74 % (41-73); Platelet Count 180 K/mm3 (150-400); RDW Coefficient Variation 14.1 % (11.7-14.2); RDW Standard Deviation 45.9 fL (35.1-46.3); Red Blood Cell Count 3.87 M/mm3 (3.80-5.20); White Blood Cell Count 5.34 K/mm3 (4.00-11.30)
[2023-07-24 07:14] LABS: Albumin, Blood 2.9 g/dL (3.4-5.0); Albumin/Globulin Ratio 0.8 (0.8-1.8); Bilirubin, Total 0.6 mg/dL (0.1-1.0); Bun/Creatinine Ratio 18.8 (12.0-20.0); Calcium, Blood 8.4 mg/dL (8.5-10.1); Creatinine, Blood 0.64 mg/dL (0.40-1.00); Globulin, Blood 3.6 g/dL (2.2-4.0); Potassium, Blood 3.8 mmol/L (3.5-5.5); Total Protein, Blood 6.5 g/dL (6.4-8.2)
[2023-07-24] MEDS ORDERED: IRON GLYCINATE PO (10:05)
--- NOTE | 2023-07-24 13:21 | NUR ---
07/24/23 1321 SONIA ARRINGTON ADMINISTERED 30ML OF BUPIVACAINE 0.5% W/EPI 1:200,000 TO OPSITE AT 0813, PROCEDURE PERFORMED BY DR. AGUILLON.
--- NOTE | 2023-07-24 19:30 | NUR ---
SHIFT SUMMARY POD0 L HIP NAILING, A/OX4, VSS, TOLERATING PO, PAIN WELL MANAGED, INCONTINENT AT BASELINE WITH AN ATTENDS IN PLACE. NO ACUTE EVENTS THIS SHIFT, CALL LIGTH IN REACH.
[2023-07-25 04:20] VITALS: BP 107/68
[2023-07-25 06:39] LABS: BASOPHILS ABSOLUTE AUTO 0.01 K/mm3 (0.00-0.23); BASOPHILS PERCENT AUTO 0 % (0-2); EOSINOPHILS PERCENT AUTO 0 % (0-6); Hematocrit 31.5 % (33.0-51.0); Hemoglobin 10.4 g/dL (11.5-16.0); IMMATURE GRAN ABSOLUTE AUTO 0.09 K/mm3 (0.00-0.10); IMMATURE GRAN PERCENT AUTO 1 % (0-1); LYMPHOCYTES ABSOLUTE AUTO 0.95 K/mm3 (0.84-5.20); LYMPHOCYTES PERCENT AUTO 15 % (21-46); MONOCYTES PERCENT AUTO 9 % (4-13); Mean Corpuscular HGB 29.4 pg (26.0-34.0); Mean Corpuscular Volume 89 fL (80-100); Mean Platelet Volume 9.9 fL (9.1-12.4); NEUTROPHILS PERCENT AUTO 75 % (41-73); Platelet Count 173 K/mm3 (150-400); RDW Standard Deviation 45.1 fL (35.1-46.3); Red Blood Cell Count 3.54 M/mm3 (3.80-5.20); White Blood Cell Count 6.55 K/mm3 (4.00-11.30)
[2023-07-25 07:08] VITALS: BP 103/69
[2023-07-25 07:11] LABS: Bun/Creatinine Ratio 18.7 (12.0-20.0); Calcium, Blood 8.6 mg/dL (8.5-10.1); Creatinine, Blood 0.59 mg/dL (0.40-1.00); Potassium, Blood 3.6 mmol/L (3.5-5.5)
--- NOTE | 2023-07-25 07:54 | NUR ---
SHIFT SUMMARY NOC. PT POD 1 FOR LEFT HIP NAILING. AQUACEL IS C/D/I ON LEFT HIP. PT MEDICATED FOR PAIN WITH RELIEF OF SX. PT INCONTINENT OF URINE AT BASELINE AND HAD URINARY VOIDS THIS SHIFT. PT RESTED WITH EYES CLOSED AND CALL LIGHT IN REACH.
[2023-07-25 14:23] VITALS: BP 113/69; BP 81/62
--- NOTE | 2023-07-25 17:04 | NUR ---
SHIFT SUMMARY PATIENT WORKED WITH PT THIS SHIFT, RECOMMENDING SNF PLACEMENT MOST LIKELY THURSDAY. C/O PAIN TO LEFT HIP, MEDICATED WITH OXYCODONE, TOLERATING NON PHARM INTERVENTIONS WELL, MILDLY RESISTANT TO REPOSITIONING, BUT STATES TO FEEL BETTER AFTERWARD. IV REMAINS PATENT. SURGICAL DRESSINGS CDI. CARES ONGOING.
[2023-07-25 19:15] VITALS: BP 114/66
[2023-07-25 19:40] VITALS: BP 120/63
[2023-07-25 20:48] VITALS: BP 119/66
[2023-07-26] VITALS (7 sets, daily range): BP systolic 93–127; BP diastolic 64–80
[2023-07-26 06:05] LABS: Source, Urine Straight Cath
[2023-07-26 06:22] LABS: Appearance, Urine Clear (Clear); Bilirubin, Urine Neg (Neg); Blood, Urine Neg (Neg); Color, Urine Yellow (P-Yellow); Glucose Qualitative, Urine Neg (Neg); Ketones, Urine Neg (Neg); Leukocyte Esterase, Urine Neg (Neg); Nitrite, Urine Neg (Neg); Protein, Urine Neg (Neg); Specific Gravity, Urine 1.005 (1.003-1.022); Urobilinogen, Urine NORM (Normal)
[2023-07-26 06:26] LABS: BASOPHILS ABSOLUTE AUTO 0.02 K/mm3 (0.00-0.23); BASOPHILS PERCENT AUTO 1 % (0-2); EOSINOPHILS ABSOLUTE AUTO 0.02 K/mm3 (0.00-0.68); EOSINOPHILS PERCENT AUTO 1 % (0-6); Hematocrit 30.1 % (33.0-51.0); Hemoglobin 9.7 g/dL (11.5-16.0); IMMATURE GRAN ABSOLUTE AUTO 0.05 K/mm3 (0.00-0.10); IMMATURE GRAN PERCENT AUTO 1 % (0-1); LYMPHOCYTES ABSOLUTE AUTO 0.71 K/mm3 (0.84-5.20); LYMPHOCYTES PERCENT AUTO 16 % (21-46); MONOCYTES ABSOLUTE AUTO 0.48 K/mm3 (0.16-1.47); MONOCYTES PERCENT AUTO 11 % (4-13); Mean Corpuscular HGB 29.1 pg (26.0-34.0); Mean Corpuscular HGB Conc 32.2 g/dL (31.5-36.5); Mean Corpuscular Volume 90 fL (80-100); Mean Platelet Volume 9.8 fL (9.1-12.4); NEUTROPHILS PERCENT AUTO 71 % (41-73); Platelet Count 154 K/mm3 (150-400); RDW Coefficient Variation 14.3 % (11.7-14.2); RDW Standard Deviation 46.5 fL (35.1-46.3); Red Blood Cell Count 3.33 M/mm3 (3.80-5.20); White Blood Cell Count 4.38 K/mm3 (4.00-11.30)
[2023-07-26 06:37] LABS: Bun/Creatinine Ratio 19.4 (12.0-20.0); Calcium, Blood 8.2 mg/dL (8.5-10.1); Creatinine, Blood 0.57 mg/dL (0.40-1.00); Potassium, Blood 3.3 mmol/L (3.5-5.5)
[2023-07-26 06:58] LABS: SARS-Cov-2 (COVID-19) PCR, MMC POSITIVE (NEGATIVE)
--- NOTE | 2023-07-26 07:54 | NUR ---
SHIFT SUMMARY NOC. PT POD 2 FOR LEFT HIP NAILING. PT WAS FEBRILE, TACHYCARDIC, AND HAD A CHANGE IN MENTATION FROM MY PREVIOUS SHIFT WITH HER. T/C PLACED TO HOSPITALIST RE CONCERNS NEW ORDERS FOR LR 1000 BAG X1, TYLENOL PRN, COVID TEST, UA, AND CHEST XRAY RECEIVED. PT'S MENTATION BEGAN TO IMPROVE AFTER TYLENOL AND FLUIDS. PT MEDICATED FOR PAIN WITH RELIEF OF SYMPTOMS. STRAIGHT CATH OBTAINED FOR UA SAMPLE D/T INCONTINENCE. COVID RESULTS PENDING. PT RESTED WITH EYES CLOSED AND CALL LIGHT IN REACH. AQUACELS X2 ARE C/D/I. ONE AQUACEL HAS LIGHT AMOUNT OF SHADOWING.
--- NOTE | 2023-07-26 16:20 | NUR ---
SHIFT SUMMARY POD2 L HIP NAIL, 2 AQUACEL DRY/INTACT, PHYSICAL THERAPY EXERCISES/STRETCHES AND REPOSITIONING EDU/ENC/DEMO T/O SHIFT, SCDS/TEDS ON. A&OX4, VSS/RA, AFEBRILE, TCDB & I.S. ENC/EDU/DEMO, HELENE PO-ENC INTAKE, INCONTINENT VOIDS, PAIN MANAGED. WILL REPORT TO ONCOMING MEG ARAGON.
--- NOTE | 2023-07-26 16:41 | NUR ---
TELEPHONE CALL TO HOSPITALIST R/T BRADYCARDIA - TELE HR IN 40S FOR A FEW BEATS AND THEN RECOVERS. NEW ORDER: CALL RT TO PUT PATIENT BACK ON CPAP/ SPENCER RT NOTIFIED. DR MUNIZ IN ORDERS FOR LOPRESSOR PARAMETERS, CPAP, BLOOD GASES, NORCO DC.
[2023-07-27 01:35] VITALS: BP 127/82
[2023-07-27 04:32] LABS: BASOPHILS ABSOLUTE AUTO 0.02 K/mm3 (0.00-0.23); BASOPHILS PERCENT AUTO 0 % (0-2); EOSINOPHILS ABSOLUTE AUTO 0.06 K/mm3 (0.00-0.68); EOSINOPHILS PERCENT AUTO 1 % (0-6); Hematocrit 28.7 % (33.0-51.0); Hemoglobin 9.2 g/dL (11.5-16.0); IMMATURE GRAN ABSOLUTE AUTO 0.04 K/mm3 (0.00-0.10); IMMATURE GRAN PERCENT AUTO 1 % (0-1); LYMPHOCYTES ABSOLUTE AUTO 0.84 K/mm3 (0.84-5.20); LYMPHOCYTES PERCENT AUTO 16 % (21-46); MONOCYTES ABSOLUTE AUTO 0.41 K/mm3 (0.16-1.47); MONOCYTES PERCENT AUTO 8 % (4-13); Mean Corpuscular HGB 28.8 pg (26.0-34.0); Mean Corpuscular HGB Conc 32.1 g/dL (31.5-36.5); Mean Corpuscular Volume 90 fL (80-100); Mean Platelet Volume 9.4 fL (9.1-12.4); NEUTROPHILS ABSOLUTE AUTO 4.01 K/mm3 (1.96-9.15); NEUTROPHILS PERCENT AUTO 75 % (41-73); Platelet Count 171 K/mm3 (150-400); RDW Coefficient Variation 14.1 % (11.7-14.2); RDW Standard Deviation 46.1 fL (35.1-46.3); White Blood Cell Count 5.38 K/mm3 (4.00-11.30)
[2023-07-27 04:58] LABS: Bun/Creatinine Ratio 13.7 (12.0-20.0); Calcium, Blood 7.9 mg/dL (8.5-10.1); Creatinine, Blood 0.59 mg/dL (0.40-1.00); Potassium, Blood 3.3 mmol/L (3.5-5.5)
--- NOTE | 2023-07-27 07:42 | NUR ---
SHIFT SUMMARY NOC. PT A/O X3 (UNORIENTED TO DATE). PT AQUACEL X2 ARE C/D/I ASIDE FROM LIGHT SEROSANG DRAINAGE ON PROXIMAL DRESSING. PT USING PUREWICK SYSTEM FOR INCONTINENCE. PT MEDICATED FOR PAIN WITH RELIEF OF SX, SEE EMAR. PT HAD A BLACK BM AT BEGINNING OF SHIFT. PT TAKES IRON, HOSPITALIST NOTIFIED AND NEW ORDER RECEIVED FOR OCCULT STOOL SAMPLE. PT MOVED FROM ROOM 216 TO 211 AT 0200. PT IN ISOLATION PRECAUTIONS FOR TESTING COVID POSITIVE. PT RESTED WITH EYES CLOSED AND CALL LIGHT IN REACH.
[2023-07-27 08:09] VITALS: BP 116/79
[2023-07-27 16:56] VITALS: BP 105/78
[2023-07-27 19:01] VITALS: BP 123/71
[2023-07-28 02:39] VITALS: BP 101/71
--- NOTE | 2023-07-28 02:43 | NUR ---
TRANSFER NOTE PT ARRIED ON FLOOR FROM SURGICAL FLOOR [facility] DX POST HIP FRACTURE SURGERY. PT COVID POSITIVE, DROPLET PRECAUTIONS MAINTAINED. CALL LIGHT IN REACH. RAILS UP X 3 FOR SAFETY
--- NOTE | 2023-07-28 06:49 | NUR ---
T/F AND SUMMARY: REPORT RECEIVED FROM EVON (MICROWAVE ENGINEER) AND PT T/F TO ROOM 337 AT 0230. PT ORIENTED TO NEW ROOM AND CALL SYSTEM AND REMAINS IN COVID ISOLATION. SHE'S POD4 S/P L.HIP FX W/SX FROM F PRIOR TO ADMIT. AQUACEL DX'S X2 REMAIN C/D/I W/PROXIMAL DX CHANGED BY SX RN THIS SHIFT. SHE'S INCONTINENT OF URINE W/PUREWIC PLACED WHILE SLEEPING PER REQUEST D/T HAVING NO KNOWLEDGE OF NEED TO VOID/NOR HAVING VOIDED. STAFF WERE UNABLE TO COLLECT GUAIAC D/T NO BM AND PT ADMITS DARK STOOL WAS LIKELY R/T PO IRON. PRN ROXICODONE RECEIVED FOR TOLERABLE RELIEF OF L.HIP PAIN. PT TO BE UP TID FOR MEALS W/1PA AND ENCOURAGED TO DEEP BX/COUGH FOR PNM PREVENTION. NO ACUTE CHANGES, WCTM/REPORT TO DAY RN.
[2023-07-28 07:39] VITALS: BP 126/86
[2023-07-28 16:02] VITALS: BP 121/81
--- NOTE | 2023-07-28 17:12 | NUR ---
SHIFT SUMMARY A&OX3, COOPERATIVE WITH CARE. DENIED CP/PRESSURE, HEADACHE, DIZZINESS, OR SOB T/O SHIFT. COMPLAINED OF 8/10 PAIN TO LEFT HIP, THIGH, AND HEEL. BLANCHABLE REDNESS, WARMTH, AND PAIN TO LEFT HEEL. MEDICATED WITH OXICODONE AT 1315 AND 1725. NO ACUTE CHANGES THIS SHIFT. PT/OT ENCOURAGES PATIENT UP TO CHAIR FOR MEALS AT LEAST. PATIENT IS INCONTINENT OF URINE AND URINATES EVERYTIME SHE IS STOOD UP. PUREWICK IN PLACE. CURRENTLY WAITING FOR DINNER. CALL LIGHT WITHIN REACH.
[2023-07-28 19:41] VITALS: BP 110/81
[2023-07-29 04:39] VITALS: BP 116/85
[2023-07-29 05:10] LABS: BASOPHILS ABSOLUTE AUTO 0.02 K/mm3 (0.00-0.23); BASOPHILS PERCENT AUTO 0 % (0-2); EOSINOPHILS ABSOLUTE AUTO 0.13 K/mm3 (0.00-0.68); EOSINOPHILS PERCENT AUTO 2 % (0-6); Hematocrit 31.2 % (33.0-51.0); IMMATURE GRAN ABSOLUTE AUTO 0.04 K/mm3 (0.00-0.10); IMMATURE GRAN PERCENT AUTO 1 % (0-1); LYMPHOCYTES ABSOLUTE AUTO 1.42 K/mm3 (0.84-5.20); LYMPHOCYTES PERCENT AUTO 23 % (21-46); MONOCYTES ABSOLUTE AUTO 0.39 K/mm3 (0.16-1.47); MONOCYTES PERCENT AUTO 6 % (4-13); Mean Corpuscular HGB 28.7 pg (26.0-34.0); Mean Corpuscular HGB Conc 32.1 g/dL (31.5-36.5); Mean Corpuscular Volume 89 fL (80-100); Mean Platelet Volume 9.8 fL (9.1-12.4); NEUTROPHILS ABSOLUTE AUTO 4.17 K/mm3 (1.96-9.15); NEUTROPHILS PERCENT AUTO 68 % (41-73); Platelet Count 238 K/mm3 (150-400); RDW Coefficient Variation 14.2 % (11.7-14.2); RDW Standard Deviation 46.3 fL (35.1-46.3); Red Blood Cell Count 3.49 M/mm3 (3.80-5.20); White Blood Cell Count 6.17 K/mm3 (4.00-11.30)
--- NOTE | 2023-07-29 05:21 | NUR ---
SHIFT SUMMARY PT A&OX3 AND PLEASANT. PT C/O PAIN AT START OF SHIFT AND MEDICATED PER EMAR. PT SLEPT T/O NIGHT. DRESSINGS ON LEFT HIP AND LATERAL THIGH ARE C/D/I. VSS. PUREWICK IN PLACE. NO ACUTE EVENTS OVERNIGHT. BED IN LOWEST POSITION AND CALL LIGHT IN REACH.
[2023-07-29 06:46] LABS: Albumin, Blood 2.3 g/dL (3.4-5.0); Anion Gap 4 mmol/L (6-16); Blood Urea Nitrogen 10 mg/dL (8-24); Bun/Creatinine Ratio 15.8 (12.0-20.0); CO2, Blood 29 mmol/L (21-32); Calcium, Blood 8.7 mg/dL (8.5-10.1); Chloride, Blood 110 mmol/L (98-108); Creatinine, Blood 0.63 mg/dL (0.40-1.00); Glomerular Filtration Rate 89 (60-); Glucose, Blood 104 mg/dL (70-99); Potassium, Blood 3.8 mmol/L (3.5-5.5); Sodium, Blood 143 mmol/L (136-145)
[2023-07-29 16:06] VITALS: BP 115/73
--- NOTE | 2023-07-29 19:28 | NUR ---
PT IS A/OX4, PLEASANT AND COOPERATIVE. THE PT IS UP WITH MINIMAL ASSIST TO THE CHAIR. THE PT WAS UP INTO THE CHAIR X3 TODAY. THE PT WORKED WITH THE PHYSICAL AND OCCUPATIONAL THERPIST TODAY. THIS EVENIBNG THE PT FELT SHE OVER DID IT FAR THERAPY WAS CONCERNED AND WAS IN A CONSIDERABLE AMOUNT OF PAIN. THE PT WAS MEDICATED FOR PAIN AND MUSCLE SPASM. CALL LIGHT IN REACH. BED ALARM ON
[2023-07-29 19:42] VITALS: BP 109/78
[2023-07-30 04:18] VITALS: BP 126/84
--- NOTE | 2023-07-30 05:14 | NUR ---
SHIFT SUMMARY PT A&OX3 AND PLEASANT. NO ACUTE CHANGES OVERNIGHT. PT WOKE AT ABOUT 0400 WITH PAIN AND "SPASMS" IN LEFT HIP. MEDICATED PER EMAR. VSS. PT SLEPT T/O NIGHT. PUREWICK IN PLACE. AQUACELL DRESSING'S ON LEFT HIP INTACT. BED IN LOWEST POSITION AND CALL LIGHT IN REACH.
[2023-07-30 07:44] VITALS: BP 109/73
--- NOTE | 2023-07-30 16:48 | NUR ---
NO ACUTE CHANGES. PT IS UP IN CHAIR AND WORKED WITH PT AND OT. PT TREATED FOR R HIP PAIN PER EMAR. SPOKE WITH PT ON TRYING TO TAKE A STOOL SOFTNER AND PT REFUSED. PT IS ABLE TO MAKE NEEDS KNOWN. NO DISTRESS AT THIS TIME. CALL LIGHT WITHIN REACH WILL CONTINUE TO MONITOR.
[2023-07-30 20:00] VITALS: BP 128/77
[2023-07-31 03:22] VITALS: BP 112/87
--- NOTE | 2023-07-31 05:55 | NUR ---
Rn shift sumary: This nurse took over care of patient at 0330. Patient is covid positive. Pt is POD 7 today. Aquacel drsg to Left hip, intact with some old drainage noted. Drsg should be changed by surgeon today. Pt medicated for left hip pain x2 with good relief. Able to rest between cares. Pt is using purwick with mod yellow urine. Patient has not been out of bed tonight. Patient was medicated via EMAR for bowel care at beginning of shift. No BM yet this shift. Call light in reach. Will continue to monitor.
[2023-07-31 07:53] VITALS: BP 116/88
--- NOTE | 2023-07-31 14:40 | NUR ---
SHIFT SUMMARY PT RESTING QUIETLY AT START OF SHIFT. WOKE EASILY FOR CARE. UP TO CHAIR AT BS FOR BREAKFAST AND THEN [place] [facility] HAS REMAINED IN CHAIR AT BS TO PRESENT. THERAPY IN TO SEE PT, ATTEMPTING TO WORK WITH HER. PT MEDICATED X1 FOR C/O PAIN TO L HIP. DRSG'S TO L HIP INTACT AND TO BE CHANGED BY ORTHO. DR DIAZ HERE TO SEE PT EARLIER TODAY. NO NEW ORDERS TO PRESENT. PT AGREEABLE TO TAKE A SHOWER THIS AFTERNOON. DENIED FURTHER NEEDS AT THIS TIME. CALL LT IN REACH, WATCHING TV.
[2023-07-31 18:07] VITALS: BP 109/76
[2023-07-31 19:24] VITALS: BP 129/91
--- NOTE | 2023-08-01 04:32 | NUR ---
SHIFT SUMMARY 83 YR F ADMITTED ON 07/23/23. FULL CODE. NO ACUTE CHANGES THIS SHIFT. PT C/O LEFT HIP PAIN AND MEDICATED PER EMAR. PUREWIK WAS PLACED THIS SHIFT AND IS WORKING WELL. PT STATES THAT SHE IS LONELY IN THE ROOM BY HERSELF BUT SHE UNDERSTANDS THAT BECAUSE OF BEING POSITIVE FOR COVID STAFF IS ONLY IN HER ROOM WHEN NECESSARY. SHE APPEARS TO HAVE SLEPT FOR MOST OF THIS SHIFT AND IS ABLE TO CALL APPROPRIATELY FOR ASSISTANCE.
[2023-08-01 04:42] VITALS: BP 124/89
[2023-08-01 08:17] VITALS: BP 116/72
[2023-08-01 10:15] LABS: Stool Occult Bld Immuno 1 Negative (NEGATIVE)
[2023-08-01 14:59] VITALS: BP 110/68
--- NOTE | 2023-08-01 17:59 | NUR ---
SHIFT SUMMARY Pt remains A&Ox3 this shift. VSS. Resp even nonlabored on RA. Tolerating diet. Incontinent of urine. Brief in place. Increased left hip pain this afternoon after getting back in bed with ast. Meds effective for pain control. Encouraged pt not to wait until pain is uncontrolled to ask for meds.
[2023-08-01 19:45] VITALS: BP 128/90
[2023-08-02 02:25] VITALS: BP 106/74
--- NOTE | 2023-08-02 05:31 | NUR ---
SHIFT SUMMARY 83 YR F ADMITTED ON 07/23/22. FULL CODE. PT WAS YELLING OUT IN PAIN AT BEGINNING OF SHIFT BUT WAS ONLY ABLE TO RECEIVE TYLENOL AT THE TIME. SHE STATED THAT IT WORKED WELL AND SHE WAS GIVEN OXY WHEN IT WAS TIME. WE DISCUSSED PAIN MANAGEMENT AND THE IMPORTANCE OF NOT WAITING UNTIL THE PAIN IS TERRIBLE TO REPORT IT TO THE NURSE. PT STATED SHE UNDERSTOOD. SHE HAS BEEN RECEIVING THE OXY Q4 SCHEDULED SINCE THEN AND HER PAIN APPEARS TO BE WELL MANAGED AT THIS POINT.
[2023-08-02 08:15] VITALS: BP 115/89
--- NOTE | 2023-08-02 17:40 | NUR ---
SHIFT SUMMARY Pt remains A&Ox3 this shift. VSS. Left hip pain managed with current regime. OOB this am for breakfast and dinner. Ambulated in room with fww. Encouraged to increase activity with ast. Left hip dsg intact. No redness/warmth noted this shift. Will continue to monitor.
[2023-08-02 20:37] VITALS: BP 98/75
[2023-08-03 03:24] VITALS: BP 110/76
--- NOTE | 2023-08-03 05:28 | NUR ---
SHIFT SUMMARY NOC PT A/O X 4. PLEASANT AND COOPERATIVE WITH CARE. PT HAD L HIP FX NAILING SURGERY ON 07/24/23 FROM FALL AT HOME. PT HAS AQUACEL DRESSINGS X [address] ON LEFT HIP BOTH WITH MILD SHADOWING. PT PAIN BEING MANAGED WITH OXYCODONE Q4H AND TYLENOL Q8H. PT IN ENHANCED DROPLET ISOLATION FOR BEING COVID-[address] FOR INCONTINENCE AND FREQUENCY. PT HAS NOT GOTTEN OUT OF BED DURING SHIFT. PT IS WAITING TO BE CLEARED OF C-19 TO DISCHARGE TO SNF FOR REHAB. PT IS RESTING WITH BED IN LOWEST POSITION, AND CALL LIGHT WITHIN REACH.
[2023-08-03 07:42] VITALS: BP 120/75
[2023-08-03 16:16] VITALS: BP 105/64
[2023-08-03 18:47] VITALS: BP 90/63
[2023-08-03 19:53] VITALS: BP 108/69
[2023-08-04 04:30] VITALS: BP 99/78
[2023-08-04 05:32] LABS: BASOPHILS ABSOLUTE AUTO 0.05 K/mm3 (0.00-0.23); BASOPHILS PERCENT AUTO 1 % (0-2); EOSINOPHILS ABSOLUTE AUTO 0.12 K/mm3 (0.00-0.68); EOSINOPHILS PERCENT AUTO 2 % (0-6); Hematocrit 31.6 % (33.0-51.0); Hemoglobin 9.8 g/dL (11.5-16.0); IMMATURE GRAN ABSOLUTE AUTO 0.31 K/mm3 (0.00-0.10); IMMATURE GRAN PERCENT AUTO 5 % (0-1); LYMPHOCYTES ABSOLUTE AUTO 1.43 K/mm3 (0.84-5.20); LYMPHOCYTES PERCENT AUTO 24 % (21-46); MONOCYTES ABSOLUTE AUTO 0.56 K/mm3 (0.16-1.47); MONOCYTES PERCENT AUTO 9 % (4-13); Mean Corpuscular HGB 28.3 pg (26.0-34.0); Mean Corpuscular Volume 91 fL (80-100); Mean Platelet Volume 8.8 fL (9.1-12.4); NEUTROPHILS ABSOLUTE AUTO 3.56 K/mm3 (1.96-9.15); NEUTROPHILS PERCENT AUTO 59 % (41-73); Platelet Count 376 K/mm3 (150-400); RDW Coefficient Variation 14.6 % (11.7-14.2); RDW Standard Deviation 48.1 fL (35.1-46.3); Red Blood Cell Count 3.46 M/mm3 (3.80-5.20); White Blood Cell Count 6.03 K/mm3 (4.00-11.30)
[2023-08-04 06:10] LABS: Creatinine, Blood 0.67 mg/dL (0.40-1.00); Potassium, Blood 4.3 mmol/L (3.5-5.5)
[2023-08-04 06:13] LABS: BAND PERCENT MAN 2 % (0-8); BASOPHILS PERCENT MAN 0 % (0-2); EOSINOPHILS ABSOLUTE MAN 0.12 K/mm3 (0.00-0.68); EOSINOPHILS PERCENT MAN 2 % (0-6); LYMPHOCYTES PERCENT MAN 20 % (21-46); METAMYELOCYTE ABSOLUTE MAN 0.18 K/mm3 (0.00-0.00); METAMYELOCYTE PERCENT MAN 3 % (0-0); MONOCYTES PERCENT MAN 5 % (4-13); MYELOCYTE ABSOLUTE MAN 0.06 K/mm3 (0.00-0.00); MYELOCYTE PERCENT MAN 1 % (0-0); NEUTROPHILS ABSOLUTE MAN 4.16 K/mm3 (1.96-9.15); SEG NEUTROPHILS PERCENT MAN 67 % (41-73); TOTAL CELLS COUNTED 100
--- NOTE | 2023-08-04 06:44 | NUR ---
SUMMARY: PT A/OX4, CALLS APPROPRIATELY TO SPECIFY NEEDS AND IS PLEASANT AND COOPERATIVE W/CARE. DX'S REMAIN C/D/I TO L.HIP S/P HIP FX W/SURGERY. SCHEDULED FLEXERIL, PRN TYLENOL AND PRN OXYCODONE RECEIVED FOR TOLERABLE RELIEF OF SPASMS AND PAIN. PUREWIC REMAINS IN PLACE FOR URGENCY AND INCONTINENCE AT BASELINE. SHE'S UP W/1PA AND IS MILDLY SOB W/EXERTION BUT RECOVERS AT REST. SNF D/C PLANNED FOR 08/05/23 UPON COMPLETION OF COVID ISO. NO ACUTE CHANGES, VSS/AFEBRILE. WCTM AND REPORT TO DAY RN.
[2023-08-04 07:53] VITALS: BP 96/62
[2023-08-04 15:35] VITALS: BP 92/67
--- NOTE | 2023-08-04 16:09 | NUR ---
SHIFT SUMMARY PT AWAKE, RESTING QUIETLY AT START OF SHIFT. UP TO CHAIR FOR BREAKFAST. PT ABLE TO WORK WITH THERAPY AND AMBULATE IN . PT REMAINED UP TO CHAIR UNTIL AFTER LUNCH. PT IN BED BRIEFLY WHEN O/T IN TO WORK WITH HER. PT PREPARED TO TAKE A SHOWER, BUT THEN REFUSED, WANTING TO GO BACK TO BED. LINENS CHANGED WHILE UP TO CHAIR. NO C/O TODAY. IMPROVED FROM YESTERDAY. STILL WAITING TO D/C TO SNF WHEN COVID ISO COMPLETE. CALL LT IN REACH.
[2023-08-04 19:42] VITALS: BP 104/65
[2023-08-05 06:01] LABS: BASOPHILS ABSOLUTE AUTO 0.03 K/mm3 (0.00-0.23); BASOPHILS PERCENT AUTO 0 % (0-2); EOSINOPHILS ABSOLUTE AUTO 0.11 K/mm3 (0.00-0.68); EOSINOPHILS PERCENT AUTO 2 % (0-6); Hematocrit 35.1 % (33.0-51.0); IMMATURE GRAN ABSOLUTE AUTO 0.24 K/mm3 (0.00-0.10); IMMATURE GRAN PERCENT AUTO 4 % (0-1); LYMPHOCYTES ABSOLUTE AUTO 1.46 K/mm3 (0.84-5.20); LYMPHOCYTES PERCENT AUTO 22 % (21-46); MONOCYTES ABSOLUTE AUTO 0.48 K/mm3 (0.16-1.47); MONOCYTES PERCENT AUTO 7 % (4-13); Mean Corpuscular HGB 28.6 pg (26.0-34.0); Mean Corpuscular HGB Conc 31.3 g/dL (31.5-36.5); Mean Corpuscular Volume 91 fL (80-100); NEUTROPHILS ABSOLUTE AUTO 4.37 K/mm3 (1.96-9.15); NEUTROPHILS PERCENT AUTO 65 % (41-73); Platelet Count 429 K/mm3 (150-400); RDW Coefficient Variation 14.9 % (11.7-14.2); RDW Standard Deviation 49.1 fL (35.1-46.3); Red Blood Cell Count 3.85 M/mm3 (3.80-5.20); White Blood Cell Count 6.69 K/mm3 (4.00-11.30)
[2023-08-05 06:05] VITALS: BP 79/59
[2023-08-05 06:08] VITALS: BP 74/52
[2023-08-05 06:25] LABS: Bun/Creatinine Ratio 21.1 (12.0-20.0); Calcium, Blood 9.4 mg/dL (8.5-10.1); Creatinine, Blood 0.62 mg/dL (0.40-1.00); Potassium, Blood 4.1 mmol/L (3.5-5.5)
[2023-08-05 06:33] VITALS: BP 82/62
--- NOTE | 2023-08-05 06:38 | NUR ---
SHIFT SUMMARY NO ACUTE CHANGES NOTED THROUGH THE NIGHT, A&O X4, ON RA, RESP UNLABORED, ISOLATION D/C'S THIS AM PER INFECTION CONTROL, PAIN MANAGED PER BREANNA JARAMILLO X2 DRY & INTACT TO LEFT HIP, CALLS FOR ASSISTANCE PRN, SITTING UP IN BED WATCHING TV THIS AM, CALL LIGHT IN REACH, WCTM & REPORT TO DAY RN.
[2023-08-05 07:03] VITALS: BP 99/63
--- NOTE | 2023-08-05 11:05 | NUR ---
PT STATES SOME DIZZINESS TODAY. STATES THIS IS A REGULAR OCCURANCE. CALLED DR. PONCE. WILL REVIEW MEDS.
[2023-08-05] MEDS ORDERED: ACET500 PO (12:01)
[2023-08-05] MEDS ORDERED: DOCUZEN 8.6-501 EACH PO (12:02)
[2023-08-05] MEDS ORDERED: METO25 PO (12:03)
[2023-08-05] MEDS ORDERED: DORZOPSO BOTHEYES (12:03)
[2023-08-05] MEDS ORDERED: Alphagan P5 ML BOTHEYES (12:03)
[2023-08-05] MEDS ORDERED: MIRALAX17 GM PO (12:04)
[2023-08-05] MEDS ORDERED: TIZA4 PO (12:04)
[2023-08-05] MEDS ORDERED: OXYC5 PO (12:04)
--- NOTE | 2023-08-05 14:47 | NUR ---
PT READY FOR DISCHARGE TO SNF. REPORT TO CHAD. IV PULLED INTACT. NO TELE. PEND TRANSPORT
--- NOTE | 2023-08-05 15:15 | NUR ---
TRANSPORT HERE AND PT OUT DOOR AT [id number]
== END 2023-08-05 14:58 | DRG 480 ==
LOC: ER 07:08 → SURS 12:53 → MEDS 07-28 02:28 → ENPENDDIS 08-05 11:44 → MEDS 08-05 14:58
PROVIDERS: Family Medicine; Nurse Practitioner Acute Care; Orthopaedic Surgery Sports Medicine; Physician Assistant; ADMIT Internal Medicine
PROC: 0QS736Z Reposition Left Upper Femur with Intramedullary Internal Fixation Device, Percutaneous Approach (ICD-10-PCS; principal; 2023-07-24 07:30)
PROC: 8E0ZXY6 Isolation (ICD-10-PCS; 2023-07-28)
DX: S72.142A Displaced intertrochanteric fracture of left femur, initial encounter for closed fracture (principal); U07.1 COVID-19; I10 Essential (primary) hypertension; I48.0 Paroxysmal atrial fibrillation; F32.A Depression, unspecified; S50.312A Abrasion of left elbow, initial encounter; W18.39XA Other fall on same level, initial encounter; Y92.002 Bathroom of unspecified non-institutional (private) residence as the place of occurrence of the external cause; Z88.8 Allergy status to other drugs, medicaments and biological substances; Z88.1 Allergy status to other antibiotic agents; Z88.0 Allergy status to penicillin
CPT/HCPCS: 36415; 71045; 72192; 73502; 80048; 80053; 80069; 81003; 82274; 85025; 94760; 94762; 96374; 96375; 97110; 97116; 97161; 97165; 97530; 97535; 99285-25; A9270; C1713; C1769; J0171; J0690; J1100; J1170; J1644; J1885; J2371; J2405; J2704; J3010; J7030; J7120; U0002